=== PATIENT | female | born 1940 | race Caucasian/White ===

== ENCOUNTER 2022-02-02 14:18 | Inpatient (IN) | payer MEDICARE, SELFPAY ==
[2022-02-02] VITALS (23 sets, daily range): BP systolic 120–142; BP diastolic 72–88; PULSE 79–98; RESP 18–28; TEMP 36.2–36.7; O2SAT 87–98; BMI 19.6
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
--- NOTE | ~2022-02-02 | XR_ITS ---
XR chest 2V 02/06/2022 13:49 Indication: Hypoxia and shortness of breath. Procedure: 2 view chest Comparison: Comparison to multiple prior studies sequentially, with oldest reviewed study dated 06/04. Findings: There are unchanged interstitial infiltrates primarily involving the right mid and lower memo ng. Small right pleural effusion. Heart size normal. There is atherosclerosis. The lungs are hyperinf lated which is consistent with, but not diagnostic of chronic obstructive pulmonary disease. No acute osseous abnormality. No pneumothorax. Impression: 1: Coarse interstitial changes of the right mid and lower lung which may represents progressive pulmo nary fibrosis, although superimposed acute pneumonia not excluded. 2: Small right pleural effusion. Reviewed, dictated and finalized at location B. Impression: 1: Coarse interstitial changes of the right mid and lower lung which may repres ents progressive pulmonary fibrosis, although superimposed acute pneumonia not excluded. 2: Small right pleural effusion.
--- NOTE | ~2022-02-02 | XR_ITS ---
EXAMINATION: XR mandible min 4V DATE: 02/02/2022 23:48 INDICATION: Left jaw pain. Fall. TECHNIQUE: 4 views of the mandible were obtained. COMPARISON: Head CT 02/02/2022 FINDINGS: Bone alignment is normal. No fracture. IMPRESSION: 1. No fracture. Reviewed, dictated and finalized at location B. IMPRESSION: 1. No fracture.
--- NOTE | ~2022-02-02 | XR_ITS ---
MODIFIED ESOPHAGRAM HISTORY: Dysphagia. TECHNIQUE: Modified barium esophagram was performed on 02/09/2022. I administered fluoroscopy and perf ormed the exam with speech pathologist. Patient was seated for lateral fluoroscopic imaging for mairan stion of thin liquids, pudding, solids and quantified amounts, followed by thin liquids in uncontroll ed amounts. This was recorded on tape. A single fluoroscopic spot image was also recorded. The DAP fo r this procedure was 3.74 Gycm2. The amount of fluoroscopy time used during this procedure was 6.0 mi nutes. FINDINGS: Oral stage: Reduced labial seal/retention as well as reduced lingual movement. Pharyngeal stage: Pharyngeal dysphagia with reduced laryngeal elevation, reduced tongue base retracti on and reduced pharyngeal squeeze. There is laryngeal penetration with multiple consistencies. One ep isode of aspiration following the swallow with mildly thickened liquids which elicited a cough reflex . Cervical/esophageal stage: Adequate function. IMPRESSION: Oropharyngeal dysphagia with recurrent retropharyngeal penetration and one episode of asp iration. Please correlate with speech pathologist findings and specific feeding recommendations. Reviewed, dictated and finalized at location A. IMPRESSION: Oropharyngeal dysphagia with recurrent retropharyngeal penetration and one episode of aspiration. Please correlate with speech pathologist findin gs and specific feeding recommendations.
--- NOTE | ~2022-02-02 | CT_ITS ---
EXAMINATION: CT brain wo con DATE: 02/02/2022 23:49 INDICATION: Unwitnessed fall. TECHNIQUE: Computed tomography (CT) of the head was performed without intravenous contrast. The mA wa s adjusted according to patient size. Iterative reconstruction technique was employed. The dose-lengt h product was 681.00 mGy-cm. COMPARISON: Head CT 06/04/2018 FINDINGS: There are scattered areas of low attenuation in the cerebral white matter. There is no intr acranial hemorrhage, acute infarction, or abnormal intracranial mass lesion. There is a small old inf arct in left cerebellum. There is mild mucosal thickening in the paranasal sinuses. There are likely changes of ocular lens replacement surgeries. The mastoid air cells are normal. IMPRESSION: 1. Small old infarct in left cerebellum. 2. Stable mild nonspecific cerebral white matter disease, which likely represents chronic small vesse l ischemic disease. Reviewed, dictated and finalized at location B. IMPRESSION: 1. Small old infarct in left cerebellum. 2. Stable mild nonspecific cerebral white matter disease, which likely represen ts chronic small vessel ischemic disease.
--- NOTE | ~2022-02-02 | XR_ITS ---
EXAMINATION: XR chest 1V portable DATE: 02/09/2022 10:14 INDICATION: Choking with eating. Concern for aspiration. TECHNIQUE: frontal view of the chest was obtained. COMPARISON: Chest radiograph dated 02/06/2022 and 12/06/2017 FINDINGS: Opacities in the right mid and lower lung zone which could represent progression of chronic interstit ial lung disease with suggestion of bronchiectatic changes in the lower lung zone extending directly radiographs dated 12/06/2017 or more acute superimposed pneumonia, pulmonary edema or atelectasis. Cor responding mild interval progression in volume loss in the right lung. Minimal left basilar atelectas is. No pneumothorax or left-sided pleural effusion. Heart size is normal. Mild thoracic dextrocurvatu re. IMPRESSION: 1. Increasing opacities with bronchiectatic changes in the right mid and lower lung zone and with cor responding decreased lung volumes. This likely represents progression of unilateral chronic interstit ial lung disease which may be related to chronic or recurrent aspiration or pneumonia. 2. Small right pleural effusion. Reviewed, dictated and finalized at location A. IMPRESSION: 1. Increasing opacities with bronchiectatic changes in the right mid and lower lung zone and with corresponding decreased lung volumes. This likely represents progression of unilateral chronic interstitial lung disease which may be relat ed to chronic or recurrent aspiration or pneumonia. 2. Small right pleural effusion.
--- NOTE | ~2022-02-02 | XR_ITS ---
EXAMINATION: XR chest 1V portable DATE: 02/11/2022 13:04 INDICATION: Aspiration. TECHNIQUE: A single frontal view of the chest was obtained. COMPARISON: Chest single view 02/09/2022, 06/04/2018 FINDINGS: There is chronic volume loss of right hemithorax. There are coarse reticular opacities in a ll right lung zones and at left lung base. No pleural effusion or pneumothorax. The heart size is nor mal. IMPRESSION: 1. Stable coarse reticular opacities in all right lung zones and at left lung base with right-sided v olume loss, likely chronic lung disease. Reviewed, dictated and finalized at location A. IMPRESSION: 1. Stable coarse reticular opacities in all right lung zones and at left lung b ase with right-sided volume loss, likely chronic lung disease.
--- NOTE | ~2022-02-02 | XR_ITS ---
EXAMINATION: XR chest 1V Exam Date/Time: 02/02/2022 14:30 CDT CLINICAL HISTORY: Fall today, pain in left hip Comparison: 06/04/2018. RESULT: Lines, tubes, and devices: None. Lungs and pleura: Increased coarse interstitial and fine reticular opacities with increased volume l oss in the right lung. Minimal right costophrenic angle blunting. Cardiomediastinal silhouette: Stable cardiomediastinal silhouette. Other: No acute osseous or upper abdominal finding. IMPRESSION: Increased interstitial opacities in the right lung, may reflect progressive fibrosis. Infection is no t excluded. New small right pleural effusion versus pleural scarring. No acute traumatic finding in t he chest. Reviewed, dictated and finalized at location K. IMPRESSION: Increased interstitial opacities in the right lung, may reflect progressive fib rosis. Infection is not excluded. New small right pleural effusion versus pleur al scarring. No acute traumatic finding in the chest.
--- NOTE | ~2022-02-02 | XR_ITS ---
EXAM: XR hip LT min 3V w AP pelvis HISTORY: Fall today, pain in left hip COMPARISON: 06/04/2018. FINDINGS: Severe osteopenia. Degenerative lumbar changes. Partially visualized right femoral fixatio n hardware. Nondisplaced left intertrochanteric fracture. No other fracture identified. The rectum is dilated by formed stool. IMPRESSION: Nondisplaced left intertrochanteric fracture. Possible fecal impaction. Reviewed, dictated and finalized at location K.
--- NOTE | 2022-02-02 14:22 | ECG_ITS ---
Measurements Intervals [place] Rate: 91 P: 61 WA: 183 QRS: 47 QRSD: 55 T: 47 QT: 374 QTc: 462 Interpretive Statements SINUS RHYTHM EARLY PRECORDIAL R/S TRANSITION BORDERLINE ST-T WAVE ABNORMALITY- INFERIOR LEADS BASELINE ARTIFACT- I, III, AVL, V2, V4-V5 BORDERLINE ECG Electronically Signed On 02-02-2022 20:09:14 CDT by Christiano Evangelista D.O.
[2022-02-02 15:12] LABS: Basophils Percent Auto 0.2 % (0.2-1.2); Eosinophils Percent Auto 0.1 % (0-4.4); Hematocrit 37.5 % (37.0-47.0); Hemoglobin 12.2 g/dL (12.0-15.0); Immature Granulocyte Absolute 0.13 K/mm3 (0.00-0.031); Immature Granulocyte Percent A 0.7 % (0-0.5); Lymphocytes Absolute Auto 0.97 K/mm3 (0.9-3.2); Lymphocytes Percent Auto 4.9 % (18.3-44.2); Mean Corpuscular HGB Conc 32.5 g/dl (32-36); Mean Corpuscular Volume 101.4 fl (80-100); Mean Platelet Volume 9.5 fl (7.4-10.4); Monocytes Absolute Auto 0.4 K/mm3 (0.1-0.6); Monocytes Percent Auto 2.1 % (2.6-8.5); Neutrophils Absolute Auto 18.3 K/mm3 (1.3-6.7); Platelet Count Result 233 k/mm3 (150-375); Red Cell Distribution Width 12.5 % (11.5-14.5); White Blood Count 19.9 K/mm3 (4.5-10.0)
[2022-02-02 15:22] LABS: INR 1.1; Partial Thromboplastin Time 28.6 SECONDS (22.3-36.8); Prothrombin Time 13.8 Seconds (11.1-14.7)
[2022-02-02 15:23] LABS: Alanine Aminotransferase 16 U/L (6-35); Albumin Level 3.8 g/dL (3.5-5.1); Alkaline Phosphatase 115 U/L (38-126); Anion Gap 7 mmol/L (8-16); Aspartate Amino Transferase 26 U/L (14-36); Bilirubin,Total 0.4 mg/dL (0.2-1.3); Blood Urea Nitrogen 16 mg/dL (7-17); Calcium 8.8 mg/dL (8.4-10.2); Carbon Dioxide 25 mmol/L (22-30); Chloride 106 mmol/L (98-107); Estimated CRCL calculation 46 ml/min; Estimated Glomerular Filt Rate > 60; Glucose 143 mg/dL (65-110); Sodium 138 mmol/L (137-145)
[2022-02-02] MEDS: MORPHINE SULFATE (*CRX) 4 MG/ML INJ IV PUSH (15:36)
[2022-02-02 15:55] LABS: SARS-CoV-2 RNA PCR Negative
--- NOTE | 2022-02-02 16:03 | ED.LOWEXIN ---
HPI - Extremity Injury (Lower) General Chief Complaint: Extremity Injury, Lower Stated Complaint: hip injury Time Seen by Provider: 02/02/22 14:21 History of Present Illness HPI Narrative: Patient is an 81-year-old female with history of dementia who presents ER with left hip fracture. Patient was found this morning on the ground during morning rounds. Imaging showed hip fracture so she was sent to the ER for further evaluation. Patient endorses pain at her left hip. She is unable to verbalize what occurred to the caused her to injure her hip. Denies numbness or tingling. Related Data Allergies Allergy/AdvReac Type Severity Reaction Status Date / Time No Known Allergies Allergy Unverified 12/06/17 07:41 Review of Systems Review of Systems: ROS unobtainable: Yes unobtainable due to mental status PMFSH Past Medical History Medical History (Updated 02/02/22 @ 18:10 by Dwaine Noonan MD) Dysthymic disorder Mixed hyperlipidemia Surgical History Surgical History (Updated 02/02/22 @ 16:05 by Dwaine Noonan MD) History of hip surgery Right hip Social History Social History Smoking status: Former smoker Smoking end date: 09/21/05 Exam Narrative: GENERAL: Well-appearing, well-nourished, and in no acute distress. HEAD: Normocephalic, atraumatic. ENT: Mucous membranes moist. CHEST: Clear to auscultation. No respiratory distress. HEART: Regular rate and rhythm. Normal peripheral pulses. ABDOMEN: Soft, nontender, nondistended. EXTREMITIES: Left lower extremity in position of comfort which is flexed at the hip and knee. Tender palpation over the left hip. Sensation and pulses intact in the affected extremity. SKIN: Warm, dry, no rash. NEURO: Alert and oriented x1. PSYCH: Normal mood and affect. Course Course Emergency Course: Orthopedic surgery consulted. Admit to hospitalist service. Vital Signs Vital signs: Vital Signs Temperature 98.1 F 02/02/22 14:17 Pulse Rate 98 02/02/22 14:17 Respiratory Rate 24 H 02/02/22 14:17 Blood Pressure 126/81 02/02/22 14:17 Pulse Oximetry 87 L 02/02/22 14:17 Temperature 98.1 F 02/02/22 14:17 Pulse Rate 89 02/02/22 16:30 Respiratory Rate 20 02/02/22 16:30 Blood Pressure 129/86 02/02/22 15:45 Pulse Oximetry 98 02/02/22 16:30 MDM - Extremity Injury (Lower) Lab Data Result diagrams: 02/02/22 15:06 02/02/22 15:05 Labs: Lab Results 02/02/22 02/02/22 02/02/22 Range/Units 15:05 15:05 15:06 WBC (4.5-10.0) K/mm3 RBC (4.2-5.4) M/mm3 Hgb (12.0-15.0) g/dL Hct (37.0-47.0) % MCV (80-100) fl MCH (26-34) pg MCHC (32-36) g/dl RDW (11.5-14.5) % Plt Count (150-375) k/mm3 MPV (7.4-10.4) fl Immature Gran % (Auto) (0-0.5) % Neut % (Auto) (45.5-73.1) % Lymph % (Auto) (18.3-44.2) % [place] % (Auto) (2.6-8.5) % Eos % (Auto) (0-4.4) % Baso % (Auto) (0.2-1.2) % Lymph # (Auto) (0.9-3.2) K/mm3 [place] # (Auto) (0.1-0.6) K/mm3 Eos # (Auto) (0-0.3) K/mm3 Baso # (Auto) (0.0-0.1) K/mm3 Abs Immat Gran (auto) (0.00-0.031) K/mm3 Absolute Neuts (auto) (1.3-6.7) K/mm3 Absolute Nucleated RBC (0.0-0.012) K/mm3 Nucleated RBC % (0.0-0.2) % PT 13.8 (11.1-14.7) Seconds INR 1.1 APTT 28.6 (22.3-36.8) SECONDS Sodium 138 (137-145) mmol/L Potassium 4.0 (3.4-5.0) mmol/L Chloride 106 (98-107) mmol/L Carbon Dioxide 25 (22-30) mmol/L Anion Gap 7 L (8-16) mmol/L BUN 16 (7-17) mg/dL Creatinine 0.70 (0.7-1.0) mg/dL Estim Creat Clear Calc 46 ml/min Estimated GFR > 60 (59 - ) Glucose 143 H (65-110) mg/dL Calcium 8.8 (8.4-10.2) mg/dL Total Bilirubin 0.4 (0.2-1.3) mg/dL AST 26 (14-36) U/L ALT 16 (6-35) U/L Alkaline Phosphatase 115 (38-126) U/L Total Protein 8.0 (6.3-8.2) g/dL Albumin 3.8 (3.5-5.1) g/dL SARS-CoV-2 RNA (RT-
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
--- NOTE | 2022-02-02 20:04 | ADMGEN ---
This patient, Awilda Salazar, was admitted to 2 Medical Room 246-01. Patient/family oriented to hospital policies and general routines including ID bracelet, bed and alarms, visiting hours, pain management, procedures, bathroom and other care routines, personal items, smoking policy, room service/diet, and visiting hours. Information on how to activate the Rapid Response Team has been discussed. Patient/Family are encouraged to report perceived risks to care and to ask questions if they do not understand what they are told or what they should do.
[2022-02-02] MEDS: busPIRone HCL 5 MG TABLET PO (23:56)
[2022-02-02] MEDS: busPIRone HCL 2.5 MG TABLET PO (23:57)
[2022-02-02] MEDS: MELATONIN 5 MG TABLET PO (23:58)
[2022-02-03] VITALS (9 sets, daily range): BP systolic 118–139; BP diastolic 63–77; PULSE 79–90; RESP 16–20; TEMP 36.1–36.7; O2SAT 92–98
[2022-02-03 01:59] LABS: Add Urine Microscopic? YES; Appearance Urine Cloudy (Clear); Bilirubin Urine 1+ (Negative); Blood Urine 2+ (Negative); Color Urine Yellow (Yellow); Glucose Urine UA Negative (Negative); Ketones Urine 2+ mg/dL (Negative); Leukocyte Esterase Ur 1+ LEU/UL (Negative); Nitrate Urine Negative (Negative); Protein Urine 2+ mg/dL (Negative); Specific Grav Ur >= 1.030 (1.001-1.035); Urobilinogen Urine 0.2 mg/dL (<2.0)
[2022-02-03 02:05] LABS: Bacteria Urine 4+ /hpf; Mucus Urine Heavy /lpf; RBC Urine 21-50 /hpf (0-2); WBC Clumps Urine Present /HPF; WBC Urine >75 /hpf
[2022-02-03 05:39] LABS: Basophils Percent Auto 0.2 % (0.2-1.2); Eosinophils Absolute Auto 0.1 K/mm3 (0-0.3); Eosinophils Percent Auto 0.5 % (0-4.4); Hemoglobin 11.7 g/dL (12.0-15.0); Immature Granulocyte Percent A 0.8 % (0-0.5); Lymphocytes Absolute Auto 1.31 K/mm3 (0.9-3.2); Lymphocytes Percent Auto 9.9 % (18.3-44.2); Mean Corpuscular HGB Conc 31.6 g/dl (32-36); Mean Corpuscular Hemoglobin 32.2 pg (26-34); Mean Corpuscular Volume 101.9 fl (80-100); Mean Platelet Volume 9.7 fl (7.4-10.4); Monocytes Absolute Auto 0.9 K/mm3 (0.1-0.6); Monocytes Percent Auto 6.6 % (2.6-8.5); Neutrophils Absolute Auto 10.9 K/mm3 (1.3-6.7); Platelet Count Result 195 k/mm3 (150-375); Red Blood Count 3.63 M/mm3 (4.2-5.4); Red Cell Distribution Width 12.3 % (11.5-14.5); White Blood Count 13.3 K/mm3 (4.5-10.0)
[2022-02-03 05:59] LABS: Anion Gap 3 mmol/L (8-16); Blood Urea Nitrogen 17 mg/dL (7-17); CRP 6.1 mg/dL (<1.0); Calcium 8.3 mg/dL (8.4-10.2); Carbon Dioxide 31 mmol/L (22-30); Chloride 103 mmol/L (98-107); Estimated CRCL calculation 42 ml/min; Estimated Glomerular Filt Rate > 60; Glucose 105 mg/dL (65-110); Magnesium 1.8 mg/dL (1.6-2.3); Potassium 3.8 mmol/L (3.4-5.0); Sodium 137 mmol/L (137-145)
[2022-02-03] MEDS: LEVOTHYROXINE SODIUM 50 MCG TABLET PO (06:06)
[2022-02-03 06:31] LABS: Procalcitonin 0.1 ng/mL
[2022-02-03] MEDS: DONEPEZIL HCL 10 MG TABLET PO (08:04)
[2022-02-03] MEDS: busPIRone HCL 5 MG TABLET PO ×2 (08:04→21:03)
[2022-02-03] MEDS: MIRTAZAPINE 7.5 MG TABLET PO (08:04)
[2022-02-03] MEDS: DOCUSATE SODIUM 100 MG CAPSULE PO ×2 (08:04→16:37)
[2022-02-03] MEDS: POTASSIUM CHLORIDE 20 MEQ TABLET.ER PO (08:04)
[2022-02-03] MEDS: SENNOSIDES 8.6 MG TABLET 17.2 MG PO (08:05)
[2022-02-03] MEDS: PANTOPRAZOLE 40 MG TABLET PO (08:05)
[2022-02-03] MEDS: SERTRALINE HCL 50 MG TABLET PO (08:05)
[2022-02-03] MEDS: busPIRone HCL 2.5 MG TABLET PO ×2 (08:05→21:03)
--- NOTE | 2022-02-03 09:16 | PM.CNOR ---
Assessment and Plan Assessment and plan (1) Closed intertrochanteric fracture of left hip: Qualifiers: Encounter type: initial encounter Fracture alignment: displaced Qualified Code(s): S72.142A - Displaced intertrochanteric fracture of left femur, initial encounter for closed fracture Code(s): S72.142A - Displaced intertrochanteric fracture of left femur, initial encounter for closed fracture Status: Acute Assessment and Plan: Displaced intertrochanteric fracture. Significant dementia. Leukocytosis and u/a changes. Will start antibiotics per hospitalist. I spoke with the patient's daughter. I reviewed the proposed procedure. Risks, benefits, and alternatives discussed. Proceed with ORIF left hip with IM nail. History of Present Illness HPI Consult date: 02/03/22 Chief complaint: Hip Fracture Narrative: Pleasant 81-year-old [facility] with [facility] She does not know exactly what happened. Complains of left hip and jaw pain. History of hypertension, dyslipidemia, depression, dementia, hysterectomy, right hip intertrochanteric nail fixation. She developed hypoxia with IV morphine. Chest x-ray shows interstitial opacities although these may be chronic. She has a 19.9 leukocytosis. Review of Systems Review of Systems: ROS unobtainable: Yes unobtainable due to mental status PMFSH Past Medical History Medical History Dementia Depression Hypertension No longer on medication. Hypothyroidism Mitral valve prolapse Mixed hyperlipidemia No longer on medication. Surgical History Surgical History History of bladder suspension procedure History of cataract extraction History of hip surgery Right hip History of hysterectomy History of open reduction and internal fixation (ORIF) procedure Right hip fracture. Family History Family History Mother Breast cancer Father Diabetes mellitus Heart disease Sibling Amyotrophic lateral sclerosis Social History Social History Social History: Healthcare power of road production general manager: Laura Leigh, daughter. Code status: Do not resuscitate. Smoking status: Former smoker Alcohol intake: never Substance use: never Substance use type: does not use Additional living arrangements comments: Memory care unit at [place]. Spiritual care concerns: No Meds Home Medications and Allergies Home Medications Medication Instructions Recorded Confirmed Type Multivitamin Women 50 Plus 1 tab-cap PO DAILY 02/02/22 02/02/22 History acetaminophen 650 mg PO DAILY 02/02/22 02/02/22 History buspirone 7.5 mg PO Q12H 02/02/22 02/02/22 History docusate sodium [DOK] 100 mg PO BID 02/02/22 02/02/22 History donepezil 10 mg PO DAILY 02/02/22 02/02/22 History ergocalciferol (vitamin D2) 50,000 unit PO WEEKLY 02/02/22 02/02/22 History [Vitamin D2] levothyroxine 50 mcg PO DAILY 02/02/22 02/02/22 History melatonin 5 mg PO HS 02/02/22 02/02/22 History memantine 28 mg PO DAILY 02/02/22 02/02/22 History mirtazapine 7.5 mg PO DAILY 02/02/22 02/02/22 History omeprazole 20 mg PO DAILY 02/02/22 02/02/22 History potassium chloride 20 meq PO DAILY 02/02/22 02/02/22 History sennosides [senna] 17.2 mg PO DAILY 02/02/22 02/02/22 History sertraline 50 mg PO DAILY 02/02/22 02/02/22 History Allergies Allergy/AdvReac Type Severity Reaction Status Date / Time No Known Allergies Allergy Unverified 12/06/17 07:41 Vital Signs Vital Signs - 24 hr 02/02/22 14:17 02/02/22 14:55 02/02/22 15:00 Temperature 36.7 C Pulse Rate 98 79 89 Respiratory Rate 24 H 23 H 28 H Blood Pressure 126/81 Pulse Oximetry 87 L 02/02/22 15:15 02/02/22 15:30 02/02/22 15:45 Temperature Pulse Rate 89 91 91 Respirator
--- NOTE | 2022-02-03 16:26 | P.PNIM_ITS ---
Progress Note: A&P Assessment and Plan (1) Unwitnessed fall: Code(s): R29.6 - Repeated falls Status: Acute Assessment and Plan: Patient was found on the ground at her nursing facility. Fall was unwitnessed. 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 Mandible x-ray showed no fracture. Patient denies jaw pain today * Implement fall precautions (2) Closed intertrochanteric fracture of left hip: Qualifiers: Encounter type: initial encounter Fracture alignment: displaced Qualified Code(s): S72.142A - Displaced intertrochanteric fracture of left femur, initial encounter for closed fracture Code(s): S72.142A - Displaced intertrochanteric fracture of left femur, initial encounter for closed fracture Status: Acute Assessment and Plan: Nondisplaced left IT fracture noted on imaging. * Appreciate orthopedic surgery consultation * Planning for ORIF tomorrow with Dr. Bustos * Weight-bearing status per Orthopedic surgery * Will need PT/OT postoperatively * Continue Flynn catheter until mobility is improved * Supportive care. Limit narcotics given hypoxia with morphine (3) UTI (urinary tract infection): Code(s): N39.0 - Urinary tract infection, site not specified Status: Acute Assessment and Plan: Urinalysis grossly abnormal and patient with leukocytosis. Unable to indicate urinary symptoms * Continue IV Rocephin * Urine culture pending. Await results and tailor antibiotics accordingly * WBC improving. Patient remains afebrile (4) Abnormal chest x-ray: Code(s): R93.89 - Abnormal findings on diagnostic imaging of other specified body structures Status: Acute Assessment and Plan: Increased interstitial opacities in the right lung may reflect progressive fibrosis though infection is not excluded. * Patient reports no history and has no symptoms to suggest underlying infection * She is requiring supplemental O2 due to episode of hypoxia following morphine * Currently maintaining adequate oxygen saturations and O2 should be weaned * No evidence to suggest pneumonia. Azithromycin discontinued (5) Hypothyroidism: Code(s): E03.9 - Hypothyroidism, unspecified Status: Acute Assessment and Plan: TSH is within normal limits * Continue levothyroxine (6) Dementia: Code(s): F03.90 - Unspecified dementia without behavioral disturbance Status: Acute Assessment and Plan: At baseline * Continue donepezil and memantine. Subjective Date/time seen: 02/03/22 16:26 Interval history: Date of service: 02/03/2022 Awilda Salazar is an 81-year-old female with a history of dementia, hypertension, hypothyroidism, hyperlipidemia who is seen in follow-up for left hip fracture after an unwitnessed fall. She cannot recall specifics of this fall. At this time she is complaining of mid back pain. She denies jaw pain. She denies hip pain. She cannot recall what she ate for breakfast. She denies shortness of breath. Denies belly pain. Review of Systems Review of Systems: Review of systems is limited due to dementia. Pertinent positives and negatives as per HPI Exam Narrative: General: Thin, frail 81-year-old female, supine in bed, comfortable, NARD Neuro: awake, alert and oriented to self, knows she is at the h
--- NOTE | 2022-02-03 16:26 | PM.IMPN ---
Progress Note: A&P Assessment and Plan (1) Unwitnessed fall: Code(s): R29.6 - Repeated falls Status: Acute Assessment and Plan: Patient was found on the ground at her nursing facility. Fall was unwitnessed. 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 Mandible x-ray showed no fracture. Patient denies jaw pain today Implement fall precautions (2) Closed intertrochanteric fracture of left hip: Qualifiers: Encounter type: initial encounter Fracture alignment: displaced Qualified Code(s): S72.142A - Displaced intertrochanteric fracture of left femur, initial encounter for closed fracture Code(s): S72.142A - Displaced intertrochanteric fracture of left femur, initial encounter for closed fracture Status: Acute Assessment and Plan: Nondisplaced left IT fracture noted on imaging. Appreciate orthopedic surgery consultation Planning for ORIF tomorrow with Dr. Bustos Weight-bearing status per Orthopedic surgery Will need PT/OT postoperatively Continue Flynn catheter until mobility is improved Supportive care. Limit narcotics given hypoxia with morphine (3) UTI (urinary tract infection): Code(s): N39.0 - Urinary tract infection, site not specified Status: Acute Assessment and Plan: Urinalysis grossly abnormal and patient with leukocytosis. Unable to indicate urinary symptoms Continue IV Rocephin Urine culture pending. Await results and tailor antibiotics accordingly WBC improving. Patient remains afebrile (4) Abnormal chest x-ray: Code(s): R93.89 - Abnormal findings on diagnostic imaging of other specified body structures Status: Acute Assessment and Plan: Increased interstitial opacities in the right lung may reflect progressive fibrosis though infection is not excluded. Patient reports no history and has no symptoms to suggest underlying infection She is requiring supplemental O2 due to episode of hypoxia following morphine Currently maintaining adequate oxygen saturations and O2 should be weaned No evidence to suggest pneumonia. Azithromycin discontinued (5) Hypothyroidism: Code(s): E03.9 - Hypothyroidism, unspecified Status: Acute Assessment and Plan: TSH is within normal limits Continue levothyroxine (6) Dementia: Code(s): F03.90 - Unspecified dementia without behavioral disturbance Status: Acute Assessment and Plan: At baseline Continue donepezil and memantine. Subjective Date/time seen: 02/03/22 16:26 Interval history: Date of service: 02/03/2022 Awilda Salazar is an 81-year-old female with a history of dementia, hypertension, hypothyroidism, hyperlipidemia who is seen in follow-up for left hip fracture after an unwitnessed fall. She cannot recall specifics of this fall. At this time she is complaining of mid back pain. She denies jaw pain. She denies hip pain. She cannot recall what she ate for breakfast. She denies shortness of breath. Denies belly pain. Review of Systems Review of Systems: Review of systems is limited due to dementia. Pertinent positives and negatives as per HPI Exam Narrative: General: Thin, frail 81-year-old female, supine in bed, comfortable, NARD Neuro: awake, alert and oriented to self, knows she is at the hospital but cannot state the name of the hospital, states the president is [facility], believes it is wintertime, cannot state the year, able to identify simple objects, able to follow commands, speech clear, no focal neuro deficits noted HEENMT: normocephalic, atraumatic, EOMI, sclerae anicteric Respiratory: clear to auscultation bilaterally, nonlabored breathing Cardio: regular rate, regular rhythm with S1-S2 Abdomen: nondistended, normoactive carla
[2022-02-03] MEDS: MELATONIN 5 MG TABLET PO (21:03)
[2022-02-04] VITALS (19 sets, daily range): BP systolic 103–155; BP diastolic 59–91; PULSE 80–100; RESP 14–24; TEMP 36–36.6; O2SAT 90–100
[2022-02-04 05:26] LABS: Hematocrit 37.2 % (37.0-47.0); Hemoglobin 11.8 g/dL (12.0-15.0); Mean Corpuscular HGB Conc 31.7 g/dl (32-36); Mean Corpuscular Hemoglobin 32.9 pg (26-34); Mean Corpuscular Volume 103.6 fl (80-100); Mean Platelet Volume 10.5 fl (7.4-10.4); Platelet Count Result 188 k/mm3 (150-375); Red Blood Count 3.59 M/mm3 (4.2-5.4); Red Cell Distribution Width 12.6 % (11.5-14.5); White Blood Count 15.5 K/mm3 (4.5-10.0)
[2022-02-04 05:34] LABS: Anion Gap 6 mmol/L (8-16); Blood Urea Nitrogen 16 mg/dL (7-17); Calcium 8.2 mg/dL (8.4-10.2); Carbon Dioxide 25 mmol/L (22-30); Chloride 105 mmol/L (98-107); Estimated CRCL calculation 51 ml/min; Estimated Glomerular Filt Rate > 60; Glucose 114 mg/dL (65-110); Sodium 136 mmol/L (137-145)
[2022-02-04] MEDS: LEVOTHYROXINE SODIUM 50 MCG TABLET PO (06:23)
--- NOTE | 2022-02-04 07:16 | WPDHPUPDATE1 ---
History and Physical Update Update Date/Time: 02/04/22 07:16 History and Physical has been reviewed, including an updated exam of the patient. There are NO changes in the patient's condition. Risks, benefits, and alternatives have been discussed and questions answered. Patient agrees to proceed with procedure.
[2022-02-04] MEDS: MIRTAZAPINE 7.5 MG TABLET PO (08:09)
[2022-02-04] MEDS: DONEPEZIL HCL 10 MG TABLET PO (08:09)
[2022-02-04] MEDS: busPIRone HCL 2.5 MG TABLET PO ×2 (08:10→20:26)
[2022-02-04] MEDS: SERTRALINE HCL 50 MG TABLET PO (08:10)
[2022-02-04] MEDS: PANTOPRAZOLE 40 MG TABLET PO (08:10)
[2022-02-04] MEDS: busPIRone HCL 5 MG TABLET PO ×2 (08:10→20:26)
--- NOTE | 2022-02-04 11:25 | PM.IMPN ---
Progress Note: A&P Assessment and Plan (1) Unwitnessed fall: Code(s): R29.6 - Repeated falls Status: Acute Assessment and Plan: Patient was found on the ground at her nursing facility. Fall was unwitnessed. 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 Mandible x-ray showed no fracture. No further complaints of jaw pain. Fall precautions (2) Closed intertrochanteric fracture of left hip: Qualifiers: Encounter type: initial encounter Fracture alignment: displaced Qualified Code(s): S72.142A - Displaced intertrochanteric fracture of left femur, initial encounter for closed fracture Code(s): S72.142A - Displaced intertrochanteric fracture of left femur, initial encounter for closed fracture Status: Acute Assessment and Plan: Nondisplaced left IT fracture noted on imaging. Appreciate orthopedic surgery consultation Planning for ORIF today with Dr. Bustos Weight-bearing status per Orthopedic surgery Will need PT/OT postoperatively Continue Flynn catheter until mobility is improved Supportive care. Limit narcotics given hypoxia with morphine (3) UTI (urinary tract infection): Code(s): N39.0 - Urinary tract infection, site not specified Status: Acute Assessment and Plan: Urinalysis grossly abnormal and patient with leukocytosis. Unable to indicate urinary symptoms Continue IV Rocephin Urine culture with growth of mixed daljit. Due to clinical picture and pt inability to report symptoms, will continue with treatment (4) Abnormal chest x-ray: Code(s): R93.89 - Abnormal findings on diagnostic imaging of other specified body structures Status: Acute Assessment and Plan: Increased interstitial opacities in the right lung may reflect progressive fibrosis though infection is not excluded. Patient reports no history and has no symptoms to suggest underlying infection She is requiring supplemental O2 due to episode of hypoxia following morphine Currently maintaining adequate oxygen saturations 97% and above therefore O2 should be weaned (5) Hypothyroidism: Code(s): E03.9 - Hypothyroidism, unspecified Status: Acute Assessment and Plan: TSH is within normal limits Continue levothyroxine (6) Dementia: Code(s): F03.90 - Unspecified dementia without behavioral disturbance Status: Acute Assessment and Plan: At baseline Continue donepezil and memantine. Subjective Date/time seen: 02/04/22 11:25 Interval history: Date of service: 02/03/2022 Awilda Salazar is an 81-year-old female with a history of dementia, hypertension, hypothyroidism, hyperlipidemia who is seen in follow-up for left hip fracture after an unwitnessed fall. She complains of feeling tired today. She denies any pain in. Denies back pain. She does complain of feeling thirsty and wants to know when she can have something to eat and drink. Discussed that she is having surgery today for her hip. She asked how she broke her hip and then questioned how she fell. I told her that no one saw her fall so we do not know and she said ?I was probably dancing. She denies shortness of breath, chest pain, nausea, or vomiting. No further history obtainable Review of Systems Review of Systems: All systems reviewed & are unremarkable except as noted in HPI and below Exam Narrative: General: Thin, frail 81-year-old female, supine in bed, comfortable, NARD Neuro: awake, alert and oriented to self, knows she is at the hospital but cannot state the name of the hospital, cannot state the month or year, able to follow commands, speech clear, no focal neuro deficits noted HEENMT: normocephalic, atraumatic, EOMI, sclerae anicteric Respiratory: clear to auscul
[2022-02-04] MEDS: MORPHINE SULFATE (*CRX) 2 MG/ML INJ 1 MG IV PUSH (13:12)
--- NOTE | 2022-02-04 13:30 | PC.NURSE ---
Verbal report given to Perry BREAUX Preop.To OR via bed. Daughters at bedside. Flynn draining vinicius urine.
[2022-02-04] MEDS: LACTATED RINGERS 1,000 ML 30 ML IV CONT ×2 (13:40→16:30)
--- NOTE | 2022-02-04 13:47 | WPDANESEPPF ---
Anes - Initial Pre Proc Eval Procedure: Operation Date: 02/04/22 15:30 Proposed Procedures p Left Intertrochanteric Nail(Left) - Taurus Bustos MD Date/Time: 02/04/22 13:47 Surgeon: Letitia Rocha PA-C Pre Op Diagnosis: Hip Fracture Patient Data Age: 81 Gender: F Height: 1.6 m Weight: 63.8 kg Last Vital Signs Temp 36.4 C L 02/04/22 09:45 Pulse 91 02/04/22 09:45 Resp 22 H 02/04/22 09:45 BP 138/69 02/04/22 09:45 Pulse Ox 98 02/04/22 09:45 Allergies Allergy/AdvReac Type Severity Reaction Status Date / Time No Known Allergies Allergy Unverified 12/06/17 07:41 Home Medications Medication Instructions Recorded Confirmed Type Multivitamin Women 50 Plus 1 tab-cap PO DAILY 02/02/22 02/02/22 History acetaminophen 650 mg PO DAILY 02/02/22 02/02/22 History buspirone 7.5 mg PO Q12H 02/02/22 02/02/22 History docusate sodium [DOK] 100 mg PO BID 02/02/22 02/02/22 History donepezil 10 mg PO DAILY 02/02/22 02/02/22 History ergocalciferol (vitamin D2) 50,000 unit PO WEEKLY 02/02/22 02/02/22 History [Vitamin D2] levothyroxine 50 mcg PO DAILY 02/02/22 02/02/22 History melatonin 5 mg PO HS 02/02/22 02/02/22 History memantine 28 mg PO DAILY 02/02/22 02/02/22 History mirtazapine 7.5 mg PO DAILY 02/02/22 02/02/22 History omeprazole 20 mg PO DAILY 02/02/22 02/02/22 History potassium chloride 20 meq PO DAILY 02/02/22 02/02/22 History sennosides [senna] 17.2 mg PO DAILY 02/02/22 02/02/22 History sertraline 50 mg PO DAILY 02/02/22 02/02/22 History Laboratory Tests 02/04/22 02/04/22 04:48 04:48 WBC 15.5 K/mm3 H K/mm3 (4.5-10.0) RBC 3.59 M/mm3 L M/mm3 (4.2-5.4) Hgb 11.8 g/dL L g/dL (12.0-15.0) Hct 37.2 % % (37.0-47.0) MCV 103.6 fl H fl (80-100) MCH 32.9 pg pg (26-34) MCHC 31.7 g/dl L g/dl (32-36) RDW 12.6 % % (11.5-14.5) Plt Count 188 k/mm3 k/mm3 (150-375) MPV 10.5 fl H fl (7.4-10.4) Sodium 136 mmol/L L mmol/L (137-145) Potassium 4.0 mmol/L mmol/L (3.4-5.0) Chloride 105 mmol/L mmol/L (98-107) Carbon Dioxide 25 mmol/L mmol/L (22-30) Anion Gap 6 mmol/L L mmol/L (8-16) BUN 16 mg/dL mg/dL (7-17) Creatinine 0.60 mg/dL L mg/dL (0.7-1.0) Estim Creat Clear Calc 51 ml/min ml/min Estimated GFR > 60 (59 - ) Glucose 114 mg/dL H mg/dL (65-110) Calcium 8.2 mg/dL L mg/dL (8.4-10.2) Patient hx anesthesia problems: none Family hx anesthesia problems: none Results Review: All pre-operative results and documents have been reviewed as part of the pre-operative evaluation. [facility] Past Medical History Medical History Dementia Depression Hypertension No longer on medication. Hypothyroidism Mitral valve prolapse Mixed hyperlipidemia No longer on medication. Surgical History Surgical History History of bladder suspension procedure History of cataract extraction History of hip surgery Right hip History of hysterectomy History of open reduction and internal fixation (ORIF) procedure Right hip fracture. Family History Family History Mother Breast cancer Father Diabetes mellitus Heart disease Sibling Amyotrophic lateral sclerosis Social History Social History Social History: Healthcare power of insurance attorney: Laura Leigh, daughter. Code status: Do not resuscitate. Smoking status: Former smoker Alcohol intake: never Substance use: never Substance use type: does not use Additional living arrangements comments: Memory care unit at [place]. Spiritual care concerns: No Anes - Eval Final PreProcedure Day of Procedure 02/04/22 13:47 Patient weight: normal H
[2022-02-04] MEDS: TRANEXAMIC ACID 1,000MG/ISO100 1,000 MG/100 ML BAG 200 MG IVPB (13:50)
--- NOTE | 2022-02-04 14:58 | W.PM.PROC2 ---
Procedure Note - Detailed Date of Procedure 02/04/22 Pre-op Diagnosis Intertrochanteric fracture left hip. Post-op Diagnosis Same Procedure Performed ORIF left hip intertrochanteric fracture with short cephalomedullary nail. Surgeon Taurus Bustos MD Anesthesia General Findings The bone quality was extremely poor. This is consistent with her nonambulatory status. The fracture was significantly apex anterior with the secondary split through the posterior proximal greater trochanter. Reduction was performed as able. Description of Procedure The patient was given a general anesthetic, then carefully placed in fracture table. Sterile prep and drape performed in the usual fashion. Sterile curtain was used. Gentle traction was utilized to reduce the fracture. Fluoroscopy was used to confirm anatomic reduction and a proper placement of the implants. A longitudinal incision was created at the tip of the trochanter. The deep fascia was incised. The cannulated awl was used to open the proximal femur. The guidewire was placed across the fracture. The reamer was used to open the canal. The gamma nail was placed across the fracture site. A separate incision was made for placement of the cannulated guide sleeve. The guide pin was placed in the center of the femoral head. Appropriate measurement was taken. The pin was over reamed. The screw was placed with excellent purchase. The set screw was placed proximally and backed out a quater turn. The distal locking screw was placed through the jig. The jig was removed. The wound was irrigated. The deep fascia was closed with #1 Vicryl suture followed by 2-0 Vicryl suture and arleth. Sterile dressing was applied. The patient was transferred to the recovery room in stable condition. There were no complications. Implants The short gamma nail,130 degree was used. Lag screw length was 85 millimeters. Distal lock 35 mm. Estimated Blood Loss 200 Drains No Pathology None sent Complications No immediate complications Condition Stable Disposition PACU [facility] Billing Surgery - Charge Forward: Surgery Billing
--- NOTE | 2022-02-04 17:03 | SUR.PHASEI ---
Simple mask removed at 1700.
[2022-02-04] MEDS: MELATONIN 5 MG TABLET PO (22:09)
[2022-02-05] VITALS (9 sets, daily range): BP systolic 102–137; BP diastolic 55–66; PULSE 92–102; RESP 12–16; TEMP 35.9–36.7; O2SAT 90–100
[2022-02-05 05:49] LABS: Basophils Absolute Auto 0.1 K/mm3 (0.0-0.1); Basophils Percent Auto 0.3 % (0.2-1.2); Eosinophils Absolute Auto 0.1 K/mm3 (0-0.3); Eosinophils Percent Auto 0.4 % (0-4.4); Hematocrit 34.4 % (37.0-47.0); Hemoglobin 10.7 g/dL (12.0-15.0); Immature Granulocyte Absolute 0.16 K/mm3 (0.00-0.031); Immature Granulocyte Percent A 0.7 % (0-0.5); Lymphocytes Absolute Auto 1.32 K/mm3 (0.9-3.2); Lymphocytes Percent Auto 5.9 % (18.3-44.2); Mean Corpuscular HGB Conc 31.1 g/dl (32-36); Mean Corpuscular Hemoglobin 32.7 pg (26-34); Mean Corpuscular Volume 105.2 fl (80-100); Mean Platelet Volume 10.4 fl (7.4-10.4); Monocytes Absolute Auto 1.1 K/mm3 (0.1-0.6); Monocytes Percent Auto 4.7 % (2.6-8.5); Neutrophils Absolute Auto 19.8 K/mm3 (1.3-6.7); Platelet Count Result 200 k/mm3 (150-375); Red Blood Count 3.27 M/mm3 (4.2-5.4); Red Cell Distribution Width 12.7 % (11.5-14.5); White Blood Count 22.5 K/mm3 (4.5-10.0)
[2022-02-05] MEDS: LEVOTHYROXINE SODIUM 50 MCG TABLET PO (05:51)
[2022-02-05 06:03] LABS: Anion Gap 9 mmol/L (8-16); Blood Urea Nitrogen 13 mg/dL (7-17); Carbon Dioxide 27 mmol/L (22-30); Chloride 103 mmol/L (98-107); Estimated CRCL calculation 44 ml/min; Estimated Glomerular Filt Rate > 60; Glucose 113 mg/dL (65-110); Potassium 3.7 mmol/L (3.4-5.0); Sodium 139 mmol/L (137-145)
[2022-02-05] MEDS: ONDANSETRON INJ 4 MG/2 ML VIAL IV PUSH (06:25)
[2022-02-05 07:12] LABS: Hypersegmented Neutrophils Present; Hypochromasia 1+ (NORMAL); Platelet Estimate Adequate (Adequate)
--- NOTE | 2022-02-05 07:47 | WPDANESPN ---
Anes - Prog Note Post-Op Date/Time: 02/05/22 07:47 Cardiovascular status: normal Respiratory status: normal Airway patency: baseline Mental status: baseline Post-Op hydration status: normal Vital Signs: Last Vital Signs Temp 36.7 C 02/05/22 06:25 Pulse 97 02/05/22 06:25 Resp 12 02/05/22 06:25 BP 102/55 L 02/05/22 06:25 Pulse Ox 98 02/05/22 06:25 Pain Score (VAS): 0 I/O: Intake & Output 02/04/22 02/04/22 02/05/22 15:59 23:59 07:59 Intake Total 0 1390 100 Output Total 150 115 200 Balance -150 1275 -100 Laboratory Tests 02/05/22 05:20 02/05/22 05:20 02/05/22 02/05/22 05:20 05:20 WBC 22.5 H RBC 3.27 L Hgb 10.7 L Hct 34.4 L MCV 105.2 H MCH 32.7 MCHC 31.1 L RDW 12.7 Plt Count 200 MPV 10.4 Immature Gran % (Auto) 0.7 H Neut % (Auto) 88.0 H Lymph % (Auto) 5.[address] [place] % (Auto) 4.7 Eos % (Auto) 0.4 Baso % (Auto) 0.3 Lymph # (Auto) 1.32 [place] # (Auto) 1.1 H Eos # (Auto) 0.1 Baso # (Auto) 0.1 Abs Immat Gran (auto) 0.16 H Absolute Neuts (auto) 19.8 H Absolute Nucleated RBC 0.0 Nucleated RBC % 0.0 Hypersegmented Neuts Present Platelet Estimate Adequate Hypochromasia 1+ Sodium 139 Potassium 3.7 Chloride 103 Carbon Dioxide 27 Anion Gap 9 BUN 13 Creatinine 0.70 Estim Creat Clear Calc 44 Estimated GFR > 60 Glucose 113 H Calcium 8.0 L Microbiology 02/03/22 01:49 Urine Catheterized Urine Culture - Final Post-procedural complaints: none Patient Feedback: Patient satisfied with anesthetic care.
[2022-02-05] MEDS: PANTOPRAZOLE 40 MG TABLET PO (09:06)
[2022-02-05] MEDS: POTASSIUM CHLORIDE 20 MEQ TABLET.ER PO (09:06)
[2022-02-05] MEDS: MIRTAZAPINE 7.5 MG TABLET PO (09:06)
[2022-02-05] MEDS: busPIRone HCL 5 MG TABLET PO ×2 (09:06→20:54)
[2022-02-05] MEDS: busPIRone HCL 2.5 MG TABLET PO ×2 (09:06→20:55)
[2022-02-05] MEDS: ENOXAPARIN 30 MG/0.3 ML SYRINGE SUB-Q (09:06)
[2022-02-05] MEDS: DOCUSATE SODIUM 100 MG CAPSULE PO ×2 (09:06→18:16)
[2022-02-05] MEDS: DONEPEZIL HCL 10 MG TABLET PO (09:06)
[2022-02-05] MEDS: SERTRALINE HCL 50 MG TABLET PO (09:07)
[2022-02-05] MEDS: SENNOSIDES 8.6 MG TABLET 17.2 MG PO (09:07)
[2022-02-05] MEDS: MORPHINE SULFATE (*CRX) 2 MG/ML INJ 1 MG IV PUSH (11:31)
--- NOTE | 2022-02-05 13:00 | PM.PNORT ---
Progress Note: A&P Assessment and Plan (1) Closed intertrochanteric fracture of left hip: Qualifiers: Encounter type: initial encounter Fracture alignment: displaced Qualified Code(s): S72.142A - Displaced intertrochanteric fracture of left femur, initial encounter for closed fracture Code(s): S72.142A - Displaced intertrochanteric fracture of left femur, initial encounter for closed fracture Status: Acute Assessment and Plan: POD 1: ORIF left hip intertrochanteric fracture with short cephalomedullary nail. Making good progress. Patient typically lives in a [facility] care. She is non ambulatory. Plan to discharge to SNF once patient is cleared medically. Ortho instructions: D/C to SNF/rehab Xray in 2 weeks. f/u in office in 4 weeks with xrays. Wound Care: Remove arleth at 2 weeks post op. Daily dressing changes until healed. DVT prophylaxis: continue Lovenox for 30 days total Pain medication: Tylenol. Subjective Subjective Date/Time Seen: 02/05/22 13:00 Patient resting comfortably in chair. States she is not having pain at this time. Patient is a poor historian, family memeber in the room states she has been having pain that is waking her up. Review of Systems Review of Systems: Pain right hip and leg with movement. Denied pain elsewhere. ROS unobtainable: Yes unobtainable due to medical condition Exam Narrative: Thin 81 y/o female. Resting comfortably in bed. Wearing compression socks bilaterally. Dressing dry and intact with no drainage. Moderate swelling. No edema. No ecchymosis. No erythema. No hematoma. Range of motion limited due to pain. Calf nontender. Thigh nontender. No varicosities. Distal pulses palpable. Wiggles toes. Objective Data Vital Signs Vital Signs: Vital Signs - 24 hr 02/04/22 13:54 02/04/22 15:56 02/04/22 16:10 Temperature 96.8 F L 97.8 F Pulse Rate 94 90 80 Respiratory Rate 16 16 20 Blood Pressure 122/70 136/76 144/77 H Pulse Oximetry 98 100 100 02/04/22 16:25 02/04/22 16:40 02/04/22 16:55 Temperature Pulse Rate 83 84 89 Respiratory Rate 14 14 24 H Blood Pressure 145/81 H 153/78 H 152/88 H Pulse Oximetry 100 100 100 02/04/22 17:10 02/04/22 17:25 02/04/22 17:40 Temperature Pulse Rate 84 82 86 Respiratory Rate 20 20 20 Blood Pressure 155/69 H 135/82 153/78 H Pulse Oximetry 92 93 93 02/04/22 17:56 02/04/22 18:15 02/04/22 18:45 Temperature 97.3 F L Pulse Rate 83 91 Respiratory Rate 20 22 H Blood Pressure 139/91 H 118/61 Pulse Oximetry 96 93 93 02/04/22 19:48 02/04/22 20:00 02/04/22 21:51 Temperature 97.9 F Pulse Rate 100 Respiratory Rate 16 Blood Pressure 103/59 L Pulse Oximetry 90 95 95 02/05/22 00:00 02/05/22 06:25 02/05/22 08:52 Temperature 97.7 F 98.0 F Pulse Rate 102 H 97 Respiratory Rate 14 12 Blood Pressure 111/57 L 102/55 L Pulse Oximetry 96 98 90 02/05/22 09:00 02/05/22 09:20 Temperature 96.7 F L Pulse Rate 97 Respiratory Rate 16 Blood Pressure 121/59 L Pulse Oximetry 100 98 Intake/Output Intake/Output: Intake & Output 02/02/22 02/03/22 02/04/22 02/05/22 23:59 23:59 23:59 23:59 Intake Total 132 549 2911 340 Output Total 400 465 200 Balance 100 170 925 140 Meds/Results Medications: Active Medications Generic Name Dose Route Start Last Admin Trade Name Freq PRN Reason Stop Dose Admin Buspirone HCl 5 mg 02/02/22 23:05 02/05/22 09:06 Buspirone Hcl 5 Mg Tablet PO 5 mg Q12HR TOREY Administration Buspirone HCl 2.5 mg 02/02/22 23:05 02/05/22 09:06 Buspirone Hcl 2.5 Mg Tablet PO 2.5 mg Q12HR TOREY Administration Docusate Sodium 100 mg 02/03/22 09:00 02/05/22 09:06 Docusate Sodium 100 Mg Capsule PO 100 mg BID TOREY Administration Donepezil HCl 10 mg 02/03/22 09:00 02/05/22 09:06 Donepezil Hcl 10 Mg Tablet PO 10 mg DAILY TOREY Administration Enoxaparin Sodium 30 mg 02/05/22 09:00 02/05/22 09:06 Enoxaparin 30 Mg/
--- NOTE | 2022-02-05 14:39 | P.PNIM_ITS ---
Progress Note: A&P Assessment and Plan (1) Unwitnessed fall: Code(s): R29.6 - Repeated falls Status: Acute Assessment and Plan: Patient was found on the ground at her nursing facility. Fall was unwitnessed. 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 Mandible x-ray showed no fracture. No further complaints of jaw pain. * Fall precautions (2) Closed intertrochanteric fracture of left hip: Qualifiers: Encounter type: initial encounter Fracture alignment: displaced Qualified Code(s): S72.142A - Displaced intertrochanteric fracture of left femur, initial encounter for closed fracture Code(s): S72.142A - Displaced intertrochanteric fracture of left femur, initial encounter for closed fracture Status: Acute Assessment and Plan: Nondisplaced left IT fracture noted on imaging. * Appreciate orthopedic surgery consultation * Underwent ORIF on 02/[address] Bustos. Tolerated procedure well * Weight-bearing status per Orthopedic surgery * Appreciate PT/OT eval * Continue Flynn catheter until mobility is improved. Plan for voiding trial tomorrow morning * Supportive care. Limit narcotics given hypoxia with morphine (3) UTI (urinary tract infection): Code(s): N39.0 - Urinary tract infection, site not specified Status: Acute Assessment and Plan: Urinalysis grossly abnormal and patient with leukocytosis. Unable to indicate urinary symptoms * Continue IV Rocephin * Urine culture with growth of mixed daljit. * Due to clinical picture and pt inability to report symptoms, will continue with treatment (4) Abnormal chest x-ray: Code(s): R93.89 - Abnormal findings on diagnostic imaging of other specified body structures Status: Acute Assessment and Plan: Increased interstitial opacities in the right lung may reflect progressive fibrosis though infection is not excluded. * Patient reports no history and has no symptoms to suggest underlying infection * She is requiring supplemental O2 due to episode of hypoxia following morphine however O2 sats have been 95-100% and oxygen should be weaned * She has no respiratory symptoms and no further treatment is indicated at this time (5) Hypothyroidism: Code(s): E03.9 - Hypothyroidism, unspecified Status: Acute Assessment and Plan: TSH is within normal limits * Continue levothyroxine (6) Dementia: Code(s): F03.90 - Unspecified dementia without behavioral disturbance Status: Acute Assessment and Plan: At baseline * Continue donepezil and memantine. (7) Leukocytosis: Code(s): D72.829 - Elevated white blood cell count, unspecified Status: Acute Assessment and Plan: Patient with increasing leukocytosis * WBC was elevated on presentation but improved with ceftriaxone for treatment of UTI * WBC increased to 22,000 today. May be reactive secondary to surgery * No additional signs/symptoms to suggest secondary source of infection * Vital signs are stable. Patient is afebrile * Has not received steroids * Continue to monitor CBC with differential Subjective Date/time seen: 02/05/22 14:39 Interval history: Date of service: 02/05/2022 Awilda Salazar is an 81-year-old female with a history of dementia, hypertension, hypothyroidism, hyperlipidemia wh
--- NOTE | 2022-02-05 14:39 | PM.IMPN ---
Progress Note: A&P Assessment and Plan (1) Unwitnessed fall: Code(s): R29.6 - Repeated falls Status: Acute Assessment and Plan: Patient was found on the ground at her nursing facility. Fall was unwitnessed. 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 Mandible x-ray showed no fracture. No further complaints of jaw pain. Fall precautions (2) Closed intertrochanteric fracture of left hip: Qualifiers: Encounter type: initial encounter Fracture alignment: displaced Qualified Code(s): S72.142A - Displaced intertrochanteric fracture of left femur, initial encounter for closed fracture Code(s): S72.142A - Displaced intertrochanteric fracture of left femur, initial encounter for closed fracture Status: Acute Assessment and Plan: Nondisplaced left IT fracture noted on imaging. Appreciate orthopedic surgery consultation Underwent ORIF on 02/[address] Bustos. Tolerated procedure well Weight-bearing status per Orthopedic surgery Appreciate PT/OT eval Continue Flynn catheter until mobility is improved. Plan for voiding trial tomorrow morning Supportive care. Limit narcotics given hypoxia with morphine (3) UTI (urinary tract infection): Code(s): N39.0 - Urinary tract infection, site not specified Status: Acute Assessment and Plan: Urinalysis grossly abnormal and patient with leukocytosis. Unable to indicate urinary symptoms Continue IV Rocephin Urine culture with growth of mixed daljit. Due to clinical picture and pt inability to report symptoms, will continue with treatment (4) Abnormal chest x-ray: Code(s): R93.89 - Abnormal findings on diagnostic imaging of other specified body structures Status: Acute Assessment and Plan: Increased interstitial opacities in the right lung may reflect progressive fibrosis though infection is not excluded. Patient reports no history and has no symptoms to suggest underlying infection She is requiring supplemental O2 due to episode of hypoxia following morphine however O2 sats have been 95-100% and oxygen should be weaned She has no respiratory symptoms and no further treatment is indicated at this time (5) Hypothyroidism: Code(s): E03.9 - Hypothyroidism, unspecified Status: Acute Assessment and Plan: TSH is within normal limits Continue levothyroxine (6) Dementia: Code(s): F03.90 - Unspecified dementia without behavioral disturbance Status: Acute Assessment and Plan: At baseline Continue donepezil and memantine. (7) Leukocytosis: Code(s): D72.829 - Elevated white blood cell count, unspecified Status: Acute Assessment and Plan: Patient with increasing leukocytosis WBC was elevated on presentation but improved with ceftriaxone for treatment of UTI WBC increased to 22,000 today. May be reactive secondary to surgery No additional signs/symptoms to suggest secondary source of infection Vital signs are stable. Patient is afebrile Has not received steroids Continue to monitor CBC with differential Subjective Date/time seen: 02/05/22 14:39 Interval history: Date of service: 02/05/2022 Awilda Salazar is an 81-year-old female with a history of dementia, hypertension, hypothyroidism, hyperlipidemia who is seen in follow-up for left hip fracture after an unwitnessed fall. Her daughter is present at the bedside today. The patient is a poor historian given her dementia. She reports 6/10 pain in left hip today. She did participate in therapy and was able to get from the bed to the chair. She denies shortness of breath, cough, or chest pain. She is not able to provide any additional history. She has been eating well and her daughter confirms thi
[2022-02-05] MEDS: MELATONIN 5 MG TABLET PO (20:54)
[2022-02-06] VITALS (12 sets, daily range): BP systolic 113–142; BP diastolic 55–71; PULSE 83–94; RESP 14–20; TEMP 35.6–36.8; O2SAT 85–100
[2022-02-06 00:40] LABS: Glucose Point of Care 105 mg/dl (65-105)
[2022-02-06 05:57] LABS: Basophils Percent Auto 0.4 % (0.2-1.2); Eosinophils Absolute Auto 0.4 K/mm3 (0-0.3); Eosinophils Percent Auto 3.4 % (0-4.4); Hematocrit 30.1 % (37.0-47.0); Hemoglobin 9.5 g/dL (12.0-15.0); Immature Granulocyte Percent A 0.9 % (0-0.5); Lymphocytes Absolute Auto 1.26 K/mm3 (0.9-3.2); Lymphocytes Percent Auto 11.7 % (18.3-44.2); Mean Corpuscular HGB Conc 31.6 g/dl (32-36); Mean Corpuscular Hemoglobin 32.4 pg (26-34); Mean Corpuscular Volume 102.7 fl (80-100); Mean Platelet Volume 10.5 fl (7.4-10.4); Monocytes Absolute Auto 0.7 K/mm3 (0.1-0.6); Monocytes Percent Auto 6.4 % (2.6-8.5); Neutrophils Absolute Auto 8.3 K/mm3 (1.3-6.7); Neutrophils Percent Auto 77.2 % (45.5-73.1); Platelet Count Result 160 k/mm3 (150-375); Red Blood Count 2.93 M/mm3 (4.2-5.4); Red Cell Distribution Width 12.6 % (11.5-14.5); White Blood Count 10.8 K/mm3 (4.5-10.0)
[2022-02-06 06:17] LABS: Anion Gap 3 mmol/L (8-16); Blood Urea Nitrogen 12 mg/dL (7-17); Calcium 7.6 mg/dL (8.4-10.2); Carbon Dioxide 30 mmol/L (22-30); Chloride 101 mmol/L (98-107); Estimated CRCL calculation 60 ml/min; Estimated Glomerular Filt Rate > 60; Glucose 98 mg/dL (65-110); Potassium 3.6 mmol/L (3.4-5.0); Sodium 134 mmol/L (137-145)
[2022-02-06] MEDS: LEVOTHYROXINE SODIUM 50 MCG TABLET PO (06:37)
--- NOTE | 2022-02-06 07:14 | PM.PNORT ---
Progress Note: A&P Assessment and Plan (1) Closed intertrochanteric fracture of left hip: Qualifiers: Encounter type: initial encounter Fracture alignment: displaced Qualified Code(s): S72.142A - Displaced intertrochanteric fracture of left femur, initial encounter for closed fracture Code(s): S72.142A - Displaced intertrochanteric fracture of left femur, initial encounter for closed fracture Status: Acute Assessment and Plan: POD 2: ORIF left hip intertrochanteric fracture with short cephalomedullary nail. Sleeping comfortably at the time of my visit. Making good progress. Patient typically lives in a memory care. She is non ambulatory. Plan to discharge to SNF once patient is cleared medically. Ortho instructions: D/C to SNF/rehab Xray in 2 weeks. f/u in office in 4 weeks with xrays. Wound Care: Remove arleth at 2 weeks post op. Daily dressing changes until healed. DVT prophylaxis: continue Lovenox for 30 days total Pain medication: Tylenol. Subjective Subjective Date/Time Seen: 02/06/22 07:14 Patient sleeping comfortably at the time of my visit. Review of Systems Review of Systems: ROS unobtainable: Yes unobtainable due to mental status Exam Narrative: Thin 81 y/o elderly female. Resting comfortably in bed. Wearing compression socks bilaterally. Dressing dry and intact with no drainage. Moderate swelling. No edema. No ecchymosis. No erythema. No hematoma. Range of motion limited due to pain. Calf nontender. Thigh nontender. No varicosities. Distal pulses palpable. Objective Data Vital Signs Vital Signs: Vital Signs - 24 hr 02/05/22 08:52 02/05/22 09:00 02/05/22 09:20 Temperature 96.7 F L Pulse Rate 97 Respiratory Rate 16 Blood Pressure 121/59 L Pulse Oximetry 90 100 98 02/05/22 13:10 02/05/22 15:38 02/05/22 20:00 Temperature 97.1 F L Pulse Rate 93 92 Respiratory Rate 14 14 Blood Pressure 120/66 137/65 Pulse Oximetry 100 99 02/05/22 21:48 02/06/22 00:00 02/06/22 06:26 Temperature 97.9 F 97.8 F 98.2 F Pulse Rate 92 83 83 Respiratory Rate 14 14 14 Blood Pressure 119/58 L 142/71 H 138/65 Pulse Oximetry 99 98 100 Intake/Output Intake/Output: Intake & Output 02/03/22 02/04/22 02/05/22 02/06/22 23:59 23:59 23:59 23:59 Intake Total 570 1390 800 200 Output Total 400 465 350 175 Balance 170 925 450 25 Meds/Results Medications: Active Medications Generic Name Dose Route Start Last Admin Trade Name Freq PRN Reason Stop Dose Admin Buspirone HCl 5 mg 02/02/22 23:05 02/05/22 20:54 Buspirone Hcl 5 Mg Tablet PO 5 mg Q12HR TOREY Administration Buspirone HCl 2.5 mg 02/02/22 23:05 02/05/22 20:55 Buspirone Hcl 2.5 Mg Tablet PO 2.5 mg Q12HR TOREY Administration Docusate Sodium 100 mg 02/03/22 09:00 02/05/22 18:16 Docusate Sodium 100 Mg Capsule PO 100 mg BID TOREY Administration Donepezil HCl 10 mg 02/03/22 09:00 02/05/22 09:06 Donepezil Hcl 10 Mg Tablet PO 10 mg DAILY TOREY Administration Enoxaparin Sodium 30 mg 02/05/22 09:00 02/05/22 09:06 Enoxaparin 30 Mg/0.3 Ml Syringe SUB-Q 30 mg DAILY TOREY Administration Fentanyl Citrate 25 mcg 02/04/22 13:48 Fentanyl Citrate Inj (*Crx) 100 Mcg/2 Ml Vial IV PUSH Q2M PRN Pain Ceftriaxone Sodium/Dextrose 1 gm in 50 mls @ 100 mls/hr 02/02/22 23:00 02/05/22 21:20 Rocephin 1 Gm/D5w 50 Ml IVPB Infused DAILY@2100 TOREY Infusion Lactated Ringer's 1,000 mls @ 30 mls/hr 02/04/22 13:50 02/04/22 16:28 Lr - Lactated Ringers Iv IV CONT Infused .Q24H TOREY Infusion Lactated Ringer's 1,000 mls @ 30 mls/hr 02/04/22 13:50 02/04/22 17:50 Lr - Lactated Ringers Iv IV CONT Infused .Q24H TOREY Infusion Levothyroxine Sodium 50 mcg 02/03/22 06:30 02/06/22 06:37 Levothyroxine Sodium 50 Mcg Tablet PO 50 mcg DAILY@0630 TOREY Administration Melatonin 5 mg 02/03/22 21:00 02/05/22 20:54 Melatonin 5 Mg Tablet PO 5
--- NOTE | 2022-02-06 08:17 | PCPTNOTE ---
Patient refused treatment this session due to patient wanting to rest at this time.
[2022-02-06] MEDS: busPIRone HCL 5 MG TABLET PO ×2 (09:03→20:18)
[2022-02-06] MEDS: MIRTAZAPINE 7.5 MG TABLET PO (09:03)
[2022-02-06] MEDS: busPIRone HCL 2.5 MG TABLET PO ×2 (09:03→20:18)
[2022-02-06] MEDS: DONEPEZIL HCL 10 MG TABLET PO (09:03)
[2022-02-06] MEDS: SENNOSIDES 8.6 MG TABLET 17.2 MG PO (09:03)
[2022-02-06] MEDS: SERTRALINE HCL 50 MG TABLET PO (09:03)
[2022-02-06] MEDS: POTASSIUM CHLORIDE 20 MEQ TABLET.ER PO (09:03)
[2022-02-06] MEDS: PANTOPRAZOLE 40 MG TABLET PO (09:04)
[2022-02-06] MEDS: ENOXAPARIN 30 MG/0.3 ML SYRINGE SUB-Q (09:04)
[2022-02-06] MEDS: DOCUSATE SODIUM 100 MG CAPSULE PO ×2 (09:06→17:27)
[2022-02-06] MEDS: polyethylene glycoL 3350 17 GM POWD.PACK PO (09:06)
--- NOTE | 2022-02-06 10:50 | PCPTNOTE ---
Patient refused treatment this session. Educated patient on the importance of therapy and sitting up in chair, patient continued to refuse.
--- NOTE | 2022-02-06 14:05 | P.PNIM_ITS ---
Progress Note: A&P Assessment and Plan (1) Unwitnessed fall: Code(s): R29.6 - Repeated falls Status: Acute Assessment and Plan: Patient was found on the ground at her nursing facility. Fall was unwitnessed. 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 Mandible x-ray showed no fracture. No further complaints of jaw pain. * Fall precautions (2) Closed intertrochanteric fracture of left hip: Qualifiers: Encounter type: initial encounter Fracture alignment: displaced Qualified Code(s): S72.142A - Displaced intertrochanteric fracture of left femur, initial encounter for closed fracture Code(s): S72.142A - Displaced intertrochanteric fracture of left femur, initial encounter for closed fracture Status: Acute Assessment and Plan: Nondisplaced left IT fracture noted on imaging. * Appreciate orthopedic surgery consultation * Underwent ORIF on 02/[address] Bustos. Tolerated procedure well * Weight-bearing status per Orthopedic surgery * Appreciate PT/OT eval * Flynn catheter removed today. Patient is voiding. Monitor urine output * Supportive care. Limit narcotics given hypoxia with morphine (3) UTI (urinary tract infection): Code(s): N39.0 - Urinary tract infection, site not specified Status: Acute Assessment and Plan: Urinalysis grossly abnormal and patient with leukocytosis. Unable to indicate urinary symptoms * Continue IV Rocephin * Urine culture with growth of mixed daljit. * Due to clinical picture and pt inability to report symptoms, will continue with treatment (4) Abnormal chest x-ray: Code(s): R93.89 - Abnormal findings on diagnostic imaging of other specified body structures Status: Acute Assessment and Plan: Increased interstitial opacities in the right lung may reflect progressive fibrosis though infection is not excluded. * She was initiated on azithromycin at presentation which was discontinued after initial dose as there were no clinical signs/symptoms to suggest underlying infection * She was requiring supplemental O2 due to episode of hypoxia following morphine however O2 sats were remaining stable therefore oxygen was weaned. Pt not able to tolerate weaning and became hypoxic at 86%. * Repeat CXR given hypoxia was relatively unchanged. However as the patient is unable to indicate symptoms, will resume azithromycin in combination with ceftriaxone for CAP coverage. QTc noted. * Pt would benefit from incentive spirometry however unsure if she will be able to utilize. Nursing assistance appreciated. * Continue supplemental O2 as needed. Wean as tolerated. (5) Hypothyroidism: Code(s): E03.9 - Hypothyroidism, unspecified Status: Acute Assessment and Plan: TSH is within normal limits * Continue levothyroxine (6) Dementia: Code(s): F03.90 - Unspecified dementia without behavioral disturbance Status: Acute Assessment and Plan: At baseline * Continue donepezil and memantine. (7) Leukocytosis: Code(s): D72.829 - Elevated white blood cell count, unspecified Status: Acute Assessment and Plan: Nearly resolved. * WBC elevated on presentation which may have been reactive due to fall * Pt had increase in WBC postoperatively, likely reactive secondary to surgery * WBC significantly improved today at 10.
--- NOTE | 2022-02-06 14:05 | PM.IMPN ---
Progress Note: A&P Assessment and Plan (1) Unwitnessed fall: Code(s): R29.6 - Repeated falls Status: Acute Assessment and Plan: Patient was found on the ground at her nursing facility. Fall was unwitnessed. 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 Mandible x-ray showed no fracture. No further complaints of jaw pain. Fall precautions (2) Closed intertrochanteric fracture of left hip: Qualifiers: Encounter type: initial encounter Fracture alignment: displaced Qualified Code(s): S72.142A - Displaced intertrochanteric fracture of left femur, initial encounter for closed fracture Code(s): S72.142A - Displaced intertrochanteric fracture of left femur, initial encounter for closed fracture Status: Acute Assessment and Plan: Nondisplaced left IT fracture noted on imaging. Appreciate orthopedic surgery consultation Underwent ORIF on 02/[address] Bustos. Tolerated procedure well Weight-bearing status per Orthopedic surgery Appreciate PT/OT eval Flynn catheter removed today. Patient is voiding. Monitor urine output Supportive care. Limit narcotics given hypoxia with morphine (3) UTI (urinary tract infection): Code(s): N39.0 - Urinary tract infection, site not specified Status: Acute Assessment and Plan: Urinalysis grossly abnormal and patient with leukocytosis. Unable to indicate urinary symptoms Continue IV Rocephin Urine culture with growth of mixed daljit. Due to clinical picture and pt inability to report symptoms, will continue with treatment (4) Abnormal chest x-ray: Code(s): R93.89 - Abnormal findings on diagnostic imaging of other specified body structures Status: Acute Assessment and Plan: Increased interstitial opacities in the right lung may reflect progressive fibrosis though infection is not excluded. She was initiated on azithromycin at presentation which was discontinued after initial dose as there were no clinical signs/symptoms to suggest underlying infection She was requiring supplemental O2 due to episode of hypoxia following morphine however O2 sats were remaining stable therefore oxygen was weaned. Pt not able to tolerate weaning and became hypoxic at 86%. Repeat CXR given hypoxia was relatively unchanged. However as the patient is unable to indicate symptoms, will resume azithromycin in combination with ceftriaxone for CAP coverage. QTc noted. Pt would benefit from incentive spirometry however unsure if she will be able to utilize. Nursing assistance appreciated. Continue supplemental O2 as needed. Wean as tolerated. (5) Hypothyroidism: Code(s): E03.9 - Hypothyroidism, unspecified Status: Acute Assessment and Plan: TSH is within normal limits Continue levothyroxine (6) Dementia: Code(s): F03.90 - Unspecified dementia without behavioral disturbance Status: Acute Assessment and Plan: At baseline Continue donepezil and memantine. (7) Leukocytosis: Code(s): D72.829 - Elevated white blood cell count, unspecified Status: Acute Assessment and Plan: Nearly resolved. WBC elevated on presentation which may have been reactive due to fall Pt had increase in WBC postoperatively, likely reactive secondary to surgery WBC significantly improved today at 10.8. Continue to monitor WBC (8) Macrocytic anemia: Code(s): D53.9 - Nutritional anemia, unspecified Status: Acute Assessment and Plan: Decline in hemoglobin postoperatively likely due to surgical blood loss. 9.5 today Will check iron panel, B12, and folate Monitor H&H No evidence of bleeding Subjective Date/time seen: 02/06/22 14:05 Interval history: Date of service: 02/05/2022
[2022-02-06] MEDS: AZITHROMYCIN 250 MG TABLET 500 MG PO (17:27)
[2022-02-06] MEDS: MELATONIN 5 MG TABLET PO (20:18)
[2022-02-07] VITALS (11 sets, daily range): BP systolic 109–135; BP diastolic 48–68; PULSE 86–98; RESP 15–18; TEMP 35.6–36.6; O2SAT 84–100
[2022-02-07] MEDS: LEVOTHYROXINE SODIUM 50 MCG TABLET PO (06:06)
[2022-02-07 06:38] LABS: Hematocrit 29.1 % (37.0-47.0); Hemoglobin 9.3 g/dL (12.0-15.0); Mean Corpuscular Hemoglobin 33.1 pg (26-34); Mean Corpuscular Volume 103.6 fl (80-100); Mean Platelet Volume 10.7 fl (7.4-10.4); Platelet Count Result 186 k/mm3 (150-375); Red Blood Count 2.81 M/mm3 (4.2-5.4); Red Cell Distribution Width 12.4 % (11.5-14.5); White Blood Count 10.9 K/mm3 (4.5-10.0)
[2022-02-07 06:48] LABS: Anion Gap 4 mmol/L (8-16); Blood Urea Nitrogen 12 mg/dL (7-17); Calcium 7.8 mg/dL (8.4-10.2); Carbon Dioxide 30 mmol/L (22-30); Chloride 101 mmol/L (98-107); Estimated CRCL calculation 51 ml/min; Estimated Glomerular Filt Rate > 60; Glucose 100 mg/dL (65-110); Potassium 3.5 mmol/L (3.4-5.0); Sodium 135 mmol/L (137-145)
[2022-02-07 07:08] LABS: Iron 34 ug/dL (37-170)
--- NOTE | 2022-02-07 07:11 | P.PNIM_ITS ---
Progress Note: A&P Assessment and Plan (1) Unwitnessed fall: Code(s): R29.6 - Repeated falls Status: Acute Assessment and Plan: Patient was found on the ground at her nursing facility. Fall was unwitnessed. 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 Mandible x-ray showed no fracture. No further complaints of jaw pain. * Fall precautions (2) Closed intertrochanteric fracture of left hip: Qualifiers: Encounter type: initial encounter Fracture alignment: displaced Qualified Code(s): S72.142A - Displaced intertrochanteric fracture of left femur, initial encounter for closed fracture Code(s): S72.142A - Displaced intertrochanteric fracture of left femur, initial encounter for closed fracture Status: Acute Assessment and Plan: Nondisplaced left IT fracture noted on imaging. * Appreciate orthopedic surgery consultation * Underwent ORIF on 02/[address] Bustos. Tolerated procedure well * Weight-bearing status per Orthopedic surgery * D/C to SNF/rehab * Xray in 2 weeks. f/u in office in 4 weeks with xrays. * Wound Care: Remove arleth at 2 weeks post op. Daily dressing changes until healed. * DVT prophylaxis: continue Lovenox for 30 days total * Pain medication: Tylenol. * Flynn catheter removed today. Patient is voiding. Monitor closely as it appears she is urinating less, but also has poor PO intake. 255 mL out yesterday. * Supportive care. Limit narcotics given hypoxia with morphine (3) UTI (urinary tract infection): Code(s): N39.0 - Urinary tract infection, site not specified Status: Acute Assessment and Plan: Urinalysis grossly abnormal and patient with leukocytosis. Unable to indicate urinary symptoms * Will transition to PO Augmentin today with plan for discharge tomorrow. * Urine culture with growth of mixed daljit. * Due to clinical picture and pt inability to report symptoms, will continue with treatment (4) Abnormal chest x-ray: Code(s): R93.89 - Abnormal findings on diagnostic imaging of other specified body structures Status: Acute Assessment and Plan: Increased interstitial opacities in the right lung may reflect progressive fibrosis though infection is not excluded. * She was initiated on azithromycin at presentation which was discontinued after initial dose as there were no clinical signs/symptoms to suggest underlying infection * She was requiring supplemental O2 due to episode of hypoxia following morphine however O2 sats were remaining stable therefore oxygen was weaned. Pt not able to tolerate weaning and became hypoxic at 86%. * Will re-attempt to wean today. If not tolerated, home O2 eval will be performed. * Repeat CXR given hypoxia was relatively unchanged. However as the patient is unable to indicate symptoms, will resume azithromycin in combination with oral augmentin for CAP coverage. QTc noted. * Pt would benefit from incentive spirometry however unsure if she will be able to utilize. Nursing assistance appreciated. * Continue supplemental O2 as needed. (5) Hypothyroidism: Code(s): E03.9 - Hypothyroidism, unspecified Status: Acute Assessment and Plan: TSH is within normal limits * Continue levothyroxine (6) Dementia: Code(s): F03.90 - Unspecified dementia without behavioral disturbance Status: Acute Assessm
--- NOTE | 2022-02-07 07:11 | PM.IMPN ---
Progress Note: A&P Assessment and Plan (1) Unwitnessed fall: Code(s): R29.6 - Repeated falls Status: Acute Assessment and Plan: Patient was found on the ground at her nursing facility. Fall was unwitnessed. 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 Mandible x-ray showed no fracture. No further complaints of jaw pain. Fall precautions (2) Closed intertrochanteric fracture of left hip: Qualifiers: Encounter type: initial encounter Fracture alignment: displaced Qualified Code(s): S72.142A - Displaced intertrochanteric fracture of left femur, initial encounter for closed fracture Code(s): S72.142A - Displaced intertrochanteric fracture of left femur, initial encounter for closed fracture Status: Acute Assessment and Plan: Nondisplaced left IT fracture noted on imaging. Appreciate orthopedic surgery consultation Underwent ORIF on 02/[address] Bustos. Tolerated procedure well Weight-bearing status per Orthopedic surgery D/C to SNF/rehab Xray in 2 weeks. f/u in office in 4 weeks with xrays. Wound Care: Remove arleth at 2 weeks post op. Daily dressing changes until healed. DVT prophylaxis: continue Lovenox for 30 days total Pain medication: Tylenol. Flynn catheter removed today. Patient is voiding. Monitor closely as it appears she is urinating less, but also has poor PO intake. 255 mL out yesterday. Supportive care. Limit narcotics given hypoxia with morphine (3) UTI (urinary tract infection): Code(s): N39.0 - Urinary tract infection, site not specified Status: Acute Assessment and Plan: Urinalysis grossly abnormal and patient with leukocytosis. Unable to indicate urinary symptoms Will transition to PO Augmentin today with plan for discharge tomorrow. Urine culture with growth of mixed daljit. Due to clinical picture and pt inability to report symptoms, will continue with treatment (4) Abnormal chest x-ray: Code(s): R93.89 - Abnormal findings on diagnostic imaging of other specified body structures Status: Acute Assessment and Plan: Increased interstitial opacities in the right lung may reflect progressive fibrosis though infection is not excluded. She was initiated on azithromycin at presentation which was discontinued after initial dose as there were no clinical signs/symptoms to suggest underlying infection She was requiring supplemental O2 due to episode of hypoxia following morphine however O2 sats were remaining stable therefore oxygen was weaned. Pt not able to tolerate weaning and became hypoxic at 86%. Will re-attempt to wean today. If not tolerated, home O2 eval will be performed. Repeat CXR given hypoxia was relatively unchanged. However as the patient is unable to indicate symptoms, will resume azithromycin in combination with oral augmentin for CAP coverage. QTc noted. Pt would benefit from incentive spirometry however unsure if she will be able to utilize. Nursing assistance appreciated. Continue supplemental O2 as needed. (5) Hypothyroidism: Code(s): E03.9 - Hypothyroidism, unspecified Status: Acute Assessment and Plan: TSH is within normal limits Continue levothyroxine (6) Dementia: Code(s): F03.90 - Unspecified dementia without behavioral disturbance Status: Acute Assessment and Plan: At baseline Continue donepezil and memantine. (7) Leukocytosis: Code(s): D72.829 - Elevated white blood cell count, unspecified Status: Acute Assessment and Plan: Nearly resolved. WBC elevated on presentation which may have been reactive due to fall Pt had increase in WBC postoperatively, likely reactive secondary to surgery WBC mildly elevated today at 10.9. Contin
[2022-02-07 07:18] LABS: Percent Iron Saturation 23 % (20-50)
[2022-02-07 07:54] LABS: Folic Acid > 20.0 ng/mL (2.76->20); Vitamin B12 > 1000.0 pg/mL (239-931)
--- NOTE | 2022-02-07 08:44 | PM.PNORT ---
Progress Note: A&P Assessment and Plan (1) Closed intertrochanteric fracture of left hip: Qualifiers: Encounter type: initial encounter Fracture alignment: displaced Qualified Code(s): S72.142A - Displaced intertrochanteric fracture of left femur, initial encounter for closed fracture Code(s): S72.142A - Displaced intertrochanteric fracture of left femur, initial encounter for closed fracture Status: Acute Assessment and Plan: POD 3: ORIF left hip intertrochanteric fracture with short cephalomedullary nail. Resting comfortably at the time of my visit. Making good progress. Patient typically lives in a memory care. She is non ambulatory. Plan to discharge to SNF once patient is cleared medically. Ortho instructions: D/C to SNF/rehab Xray in 2 weeks. f/u in office in 4 weeks with xrays. Wound Care: Remove arleth at 2 weeks post op. Daily dressing changes until healed. DVT prophylaxis: continue Lovenox for 30 days total Pain medication: Tylenol. Subjective Subjective Date/Time Seen: 02/07/22 08:44 Patient resting comfortably in bed. Complains of pain in her hip. No other complaints. Review of Systems Review of Systems: ROS unobtainable: Yes unobtainable due to mental status Exam Narrative: Thin 81 y/o elderly female. Resting comfortably in bed. Wearing compression socks bilaterally. Dressing dry and intact with no drainage. Moderate swelling. No edema. No ecchymosis. No erythema. No hematoma. Range of motion limited due to pain. Calf nontender. Thigh nontender. No varicosities. Distal pulses palpable. Wiggles toes. Objective Data Vital Signs Vital Signs: Vital Signs - 24 hr 02/06/22 09:11 02/06/22 09:20 02/06/22 09:49 Temperature 97.9 F Pulse Rate 89 93 Respiratory Rate 16 20 Blood Pressure 116/56 L 117/59 L Pulse Oximetry 94 95 100 02/06/22 12:00 02/06/22 15:47 02/06/22 19:37 Temperature 97.4 F L 98 F 96.0 F L Pulse Rate 90 92 94 Respiratory Rate 18 16 18 Blood Pressure 113/55 L 121/59 L 126/57 L Pulse Oximetry 96 99 97 02/06/22 20:00 02/06/22 20:10 02/06/22 21:05 Temperature Pulse Rate 94 Respiratory Rate Blood Pressure Pulse Oximetry 95 96 85 L 02/07/22 00:00 02/07/22 04:00 Temperature 96.0 F L 96.2 F L Pulse Rate 86 87 Respiratory Rate 18 18 Blood Pressure 119/60 111/48 L Pulse Oximetry 99 100 Intake/Output Intake/Output: Intake & Output 02/04/22 02/05/22 02/06/22 02/07/22 23:59 23:59 23:59 23:59 Intake Total 1390 800 470 120 Output Total 465 350 225 Balance 925 450 245 120 Meds/Results Medications: Active Medications Generic Name Dose Route Start Last Admin Trade Name Freq PRN Reason Stop Dose Admin Azithromycin 500 mg 02/06/22 14:05 02/06/22 17:27 Azithromycin 250 Mg Tablet PO 500 mg DAILY TOREY Administration Buspirone HCl 5 mg 02/02/22 23:05 02/06/22 20:18 Buspirone Hcl 5 Mg Tablet PO 5 mg Q12HR TOREY Administration Buspirone HCl 2.5 mg 02/02/22 23:05 02/06/22 20:18 Buspirone Hcl 2.5 Mg Tablet PO 2.5 mg Q12HR TOREY Administration Docusate Sodium 100 mg 02/03/22 09:00 02/06/22 17:27 Docusate Sodium 100 Mg Capsule PO 100 mg BID TOREY Administration Donepezil HCl 10 mg 02/03/22 09:00 02/06/22 09:03 Donepezil Hcl 10 Mg Tablet PO 10 mg DAILY TOREY Administration Enoxaparin Sodium 30 mg 02/05/22 09:00 02/06/22 09:04 Enoxaparin 30 Mg/0.3 Ml Syringe SUB-Q 30 mg DAILY TOREY Administration Fentanyl Citrate 25 mcg 02/04/22 13:48 Fentanyl Citrate Inj (*Crx) 100 Mcg/2 Ml Vial IV PUSH Q2M PRN Pain Ceftriaxone Sodium/Dextrose 1 gm in 50 mls @ 100 mls/hr 02/02/22 23:00 02/06/22 20:48 Rocephin 1 Gm/D5w 50 Ml IVPB Infused DAILY@2100 TOREY Infusion Levothyroxine Sodium 50 mcg 02/03/22 06:30 02/07/22 06:06 Levothyroxine Sodium 50 Mcg Tablet PO 50 mcg DAILY@0630 TOREY Administration Melatonin 5 mg 02/03/22 21:00 02/06/22 2
--- NOTE | 2022-02-07 08:52 | PCPTNOTE ---
Patient refused treatment this session due to patient wanting to rest at this time. Explained the importance of therapy and getting up to chair, patient continued to refuse.
[2022-02-07] MEDS: DONEPEZIL HCL 10 MG TABLET PO (09:00)
[2022-02-07] MEDS: POTASSIUM CHLORIDE 20 MEQ TABLET.ER PO (09:00)
[2022-02-07] MEDS: ENOXAPARIN 30 MG/0.3 ML SYRINGE SUB-Q (09:00)
[2022-02-07] MEDS: busPIRone HCL 2.5 MG TABLET PO ×2 (09:00→20:58)
[2022-02-07] MEDS: DOCUSATE SODIUM 100 MG CAPSULE PO ×2 (09:00→16:26)
[2022-02-07] MEDS: busPIRone HCL 5 MG TABLET PO ×2 (09:00→20:58)
[2022-02-07] MEDS: AZITHROMYCIN 250 MG TABLET 500 MG PO (09:00)
[2022-02-07] MEDS: MIRTAZAPINE 7.5 MG TABLET PO (09:01)
[2022-02-07] MEDS: PANTOPRAZOLE 40 MG TABLET PO (09:01)
[2022-02-07] MEDS: SERTRALINE HCL 50 MG TABLET PO (09:01)
[2022-02-07] MEDS: SENNOSIDES 8.6 MG TABLET 17.2 MG PO (09:01)
[2022-02-07] MEDS: polyethylene glycoL 3350 17 GM POWD.PACK PO (09:01)
[2022-02-07] MEDS: MORPHINE SULFATE (*CRX) 2 MG/ML INJ 1 MG IV PUSH (09:14)
--- NOTE | 2022-02-07 12:52 | PCPTNOTE ---
Patient refused treatment this session. Patient reported I don't want too. Encouraged patient to participate in therapy and even supine lower extremity exercises, patient continued to refuse.
[2022-02-07] MEDS: AMOXICILLIN/CLAVULANATE K 500-125 MG TAB 1 TABLET PO ×2 (13:04→16:25)
[2022-02-07] MEDS: CALCIUM CARBONATE (OSCAL) 500 MG TABLET PO (16:26)
[2022-02-07] MEDS: MELATONIN 5 MG TABLET PO (20:58)
[2022-02-08] VITALS (8 sets, daily range): BP systolic 115–136; BP diastolic 63–87; PULSE 86–103; RESP 16–20; TEMP 35.9–37.2; O2SAT 93–98
[2022-02-08] MEDS: LEVOTHYROXINE SODIUM 50 MCG TABLET PO (05:44)
[2022-02-08] MEDS: MORPHINE SULFATE (*CRX) 2 MG/ML INJ 1 MG IV PUSH ×2 (09:43→14:28)
[2022-02-08] MEDS: POLYSACCHARIDE IRON COMPLEX 150 MG CAPSULE PO (09:51)
[2022-02-08] MEDS: CALCIUM CARBONATE (OSCAL) 500 MG TABLET PO ×2 (09:51→17:19)
[2022-02-08] MEDS: AZITHROMYCIN 250 MG TABLET 500 MG PO (09:51)
[2022-02-08] MEDS: POTASSIUM CHLORIDE 20 MEQ TABLET.ER PO (09:51)
[2022-02-08] MEDS: AMOXICILLIN/CLAVULANATE K 500-125 MG TAB 1 TABLET PO ×3 (09:51→17:19)
[2022-02-08] MEDS: MIRTAZAPINE 7.5 MG TABLET PO (09:52)
[2022-02-08] MEDS: polyethylene glycoL 3350 17 GM POWD.PACK PO (09:52)
[2022-02-08] MEDS: SENNOSIDES 8.6 MG TABLET 17.2 MG PO (09:52)
[2022-02-08] MEDS: DONEPEZIL HCL 10 MG TABLET PO (09:52)
[2022-02-08] MEDS: DOCUSATE SODIUM 100 MG CAPSULE PO ×2 (09:52→17:19)
[2022-02-08] MEDS: SERTRALINE HCL 50 MG TABLET PO (09:52)
[2022-02-08] MEDS: ENOXAPARIN 30 MG/0.3 ML SYRINGE SUB-Q (09:52)
[2022-02-08] MEDS: PANTOPRAZOLE 40 MG TABLET PO (09:52)
[2022-02-08] MEDS: busPIRone HCL 5 MG TABLET PO ×2 (09:52→21:23)
[2022-02-08] MEDS: busPIRone HCL 2.5 MG TABLET PO ×2 (09:52→21:23)
[2022-02-08] MEDS: ONDANSETRON INJ 4 MG/2 ML VIAL IV PUSH (10:12)
--- NOTE | 2022-02-08 12:18 | PM.IMPN ---
Progress Note: A&P Assessment and Plan (1) Unwitnessed fall: Code(s): R29.6 - Repeated falls Status: Acute Assessment and Plan: Patient was found on the ground at her nursing facility. Fall was unwitnessed. Patient cannot recall details due to dementia Sp ORIF on 02/[address] Bustos (2) Closed intertrochanteric fracture of left hip: Qualifiers: Encounter type: initial encounter Fracture alignment: displaced Qualified Code(s): S72.142A - Displaced intertrochanteric fracture of left femur, initial encounter for closed fracture Code(s): S72.142A - Displaced intertrochanteric fracture of left femur, initial encounter for closed fracture Status: Acute Assessment and Plan: Nondisplaced left IT fracture noted on imaging. Post op day 4 ORIF on 02/[address] Bustos. Weight-bearing status per Orthopedic surgery D/C to SNF/rehab Xray in 2 weeks. f/u in office in 4 weeks with xrays. Wound Care: Remove arleth at 2 weeks post op. Daily dressing changes until healed. (3) UTI (urinary tract infection): Code(s): N39.0 - Urinary tract infection, site not specified Status: Acute Assessment and Plan: Pt on Augmentin Urine culture with growth of mixed daljit. (4) Abnormal chest x-ray: Code(s): R93.89 - Abnormal findings on diagnostic imaging of other specified body structures Status: Acute Assessment and Plan: Increased interstitial opacities in the right lung may reflect progressive fibrosis though infection is not excluded. She was initiated on azithromycin at presentation which was discontinued after initial dose as there were no clinical signs/symptoms to suggest underlying infection She was requiring supplemental O2 due to episode of hypoxia following morphine however O2 sats were remaining stable therefore oxygen was weaned. Pt not able to tolerate weaning and became hypoxic at 86%. Will re-attempt to wean today. If not tolerated, home O2 eval will be performed. Repeat CXR given hypoxia was relatively unchanged. However as the patient is unable to indicate symptoms, will resume azithromycin in combination with oral augmentin for CAP coverage. QTc noted. Pt is on 1 liter of oxygen (5) Hypothyroidism: Code(s): E03.9 - Hypothyroidism, unspecified Status: Acute Assessment and Plan: TSH is within normal limits Continue levothyroxine (6) Dementia: Code(s): F03.90 - Unspecified dementia without behavioral disturbance Status: Acute Assessment and Plan: At baseline Continue donepezil and memantine. (7) Leukocytosis: Code(s): D72.829 - Elevated white blood cell count, unspecified Status: Acute Assessment and Plan: Resolved (8) Macrocytic anemia: Code(s): D53.9 - Nutritional anemia, unspecified Status: Acute Assessment and Plan: Decline in hemoglobin postoperatively likely due to surgical blood loss. 9.3 Monitor H&H No evidence of bleeding Additional Plan Constipation and nausea increase pt laxatives pt is uneasy today with abdominal discomfort Dc 1-2 days back to facility Subjective Date/time seen: 02/08/22 12:18 Interval history: Awilda Salazar is an 81-year-old female with a history of dementia, hypertension, hypothyroidism, hyperlipidemia who is seen in follow-up for left hip fracture after an unwitnessed fall. 02/08 Pt states she feels nauseated has not had a bowel movement today, belly feels firm, hopeful dc after good bowel movement Review of Systems Review of Systems: All systems reviewed & are unremarkable except as noted in HPI and below Exam Const: General: cooperative and healthy appearing; No in distress Nutritional Appearance: overweight Orientation/consciousness: oriented to person HENMT: Head: normal to inspection Resp: Effort & Inspection: no respiratory distre
[2022-02-08] MEDS: MELATONIN 5 MG TABLET PO (21:23)
[2022-02-08] MEDS: SENNOSIDES 8.6 MG TABLET PO (21:23)
[2022-02-09] VITALS (11 sets, daily range): BP systolic 115–149; BP diastolic 59–80; PULSE 78–94; RESP 16–20; TEMP 36.1–37; O2SAT 94–99
[2022-02-09 05:45] LABS: Alanine Aminotransferase 8 U/L (6-35); Albumin Level 2.8 g/dL (3.5-5.1); Alkaline Phosphatase 80 U/L (38-126); Anion Gap 3 mmol/L (8-16); Aspartate Amino Transferase 18 U/L (14-36); Bilirubin,Total 0.5 mg/dL (0.2-1.3); Blood Urea Nitrogen 11 mg/dL (7-17); Calcium 8.1 mg/dL (8.4-10.2); Carbon Dioxide 33 mmol/L (22-30); Chloride 99 mmol/L (98-107); Estimated CRCL calculation 51 ml/min; Estimated Glomerular Filt Rate > 60; Glucose 112 mg/dL (65-110); Sodium 135 mmol/L (137-145)
[2022-02-09] MEDS: LEVOTHYROXINE SODIUM 50 MCG TABLET PO (05:56)
[2022-02-09] MEDS: MORPHINE SULFATE (*CRX) 2 MG/ML INJ 1 MG IV PUSH ×2 (06:04→11:27)
[2022-02-09] MEDS: CALCIUM CARBONATE (OSCAL) 500 MG TABLET PO ×2 (08:20→17:24)
[2022-02-09] MEDS: AMOXICILLIN/CLAVULANATE K 500-125 MG TAB 1 TABLET PO (08:20)
[2022-02-09] MEDS: POTASSIUM CHLORIDE 20 MEQ TABLET.ER PO (08:20)
[2022-02-09] MEDS: POLYSACCHARIDE IRON COMPLEX 150 MG CAPSULE PO (08:20)
[2022-02-09] MEDS: DONEPEZIL HCL 10 MG TABLET PO (08:21)
[2022-02-09] MEDS: SENNOSIDES 8.6 MG TABLET 17.2 MG PO (08:21)
[2022-02-09] MEDS: busPIRone HCL 5 MG TABLET PO ×2 (08:21→20:52)
[2022-02-09] MEDS: ENOXAPARIN 30 MG/0.3 ML SYRINGE SUB-Q (08:21)
[2022-02-09] MEDS: polyethylene glycoL 3350 17 GM POWD.PACK PO (08:21)
[2022-02-09] MEDS: busPIRone HCL 2.5 MG TABLET PO ×2 (08:21→20:52)
[2022-02-09] MEDS: PANTOPRAZOLE 40 MG TABLET PO (08:21)
[2022-02-09] MEDS: MIRTAZAPINE 7.5 MG TABLET PO (08:21)
[2022-02-09] MEDS: DOCUSATE SODIUM 100 MG CAPSULE PO ×2 (08:21→17:23)
[2022-02-09] MEDS: SERTRALINE HCL 50 MG TABLET PO (08:21)
[2022-02-09] MEDS: AZITHROMYCIN 250 MG TABLET 500 MG PO (08:21)
[2022-02-09] MEDS: ONDANSETRON INJ 4 MG/2 ML VIAL IV PUSH (08:21)
--- NOTE | 2022-02-09 09:28 | PM.IMPN ---
Progress Note: A&P Assessment and Plan (1) Unwitnessed fall: Code(s): R29.6 - Repeated falls Status: Acute Assessment and Plan: Patient was found on the ground at her nursing facility. Fall was unwitnessed. Patient cannot recall details due to dementia Sp ORIF on 02/[address] Bustos - 02/09/22: Pt. with continued fall precautions in place. She is of an advance fall risk secondary to her age, her mentation and now due to her recent injury. (2) Closed intertrochanteric fracture of left hip: Qualifiers: Encounter type: initial encounter Fracture alignment: displaced Qualified Code(s): S72.142A - Displaced intertrochanteric fracture of left femur, initial encounter for closed fracture Code(s): S72.142A - Displaced intertrochanteric fracture of left femur, initial encounter for closed fracture Status: Acute Assessment and Plan: Nondisplaced left IT fracture noted on imaging. Post op day 4 ORIF on 02/[address] Bustos. Weight-bearing status per Orthopedic surgery D/C to SNF/rehab Xray in 2 weeks. f/u in office in 4 weeks with xrays. Wound Care: Remove arleth at 2 weeks post op. Daily dressing changes until healed. - 02/09/22: Post op day #[address] Bustos. Will follow all above recommendations by Orthopedic service at discharge. Will Discharge to SNF when ready to go from a medical standpoint. However, given her witnessed choking today while eating, pt,. will be kept for another day so a swallow evaluation may be performed. Continue pain medications prn, PT and OT while inpatient and apply ice to the hip for comfort as needed. (3) UTI (urinary tract infection): Qualifiers: Urinary tract infection type: site unspecified Code(s): N39.0 - Urinary tract infection, site not specified Status: Acute Assessment and Plan: Pt on Augmentin Urine culture with growth of mixed daljit. - 02/09/22: Continue Augmentin for complete course in setting of being good yumiko of abx as pt., is also being treated for an abnormality on her CXR. Her urine culture grew out a mixed genital daljit only and are not indicative of an acute UTI. We will monitor her UOP, VS and labs. (4) Abnormal chest x-ray: Code(s): R93.89 - Abnormal findings on diagnostic imaging of other specified body structures Status: Acute Assessment and Plan: Increased interstitial opacities in the right lung may reflect progressive fibrosis though infection is not excluded. She was initiated on azithromycin at presentation which was discontinued after initial dose as there were no clinical signs/symptoms to suggest underlying infection She was requiring supplemental O2 due to episode of hypoxia following morphine however O2 sats were remaining stable therefore oxygen was weaned. Pt not able to tolerate weaning and became hypoxic at 86%. Will re-attempt to wean today. If not tolerated, home O2 eval will be performed. Repeat CXR given hypoxia was relatively unchanged. However as the patient is unable to indicate symptoms, will resume azithromycin in combination with oral augmentin for CAP coverage. QTc noted. Pt is on 1 liter of oxygen - 02/09/22: Pt. continues on Azithromycin and also on Augmentin for CAP coverage at this time. She remains on supplemental oxygen that she did not require prior to coming into the hospital. We will wean this as we are able to. This AM, it was witnessed that she was choking on her breakfast by this provider. Concern for aspiration is now present. Flagyl is added to this regimen, CXR stat is ordered, the Azithromycin is changed to IV and the Augmentin is changed to Zosyn. Pt. is NPO. (5) Hypothyroidism: Code(s): E03.9 - Hypothyroidism, unspecified Status: Acute Assessment and Plan: TSH is within normal limits Continue levothyroxine - 02/09/22: Continue Levothyroxine, holding until swallow eval. (6)
[2022-02-09] MEDS: metroNIDAZOLE 500 MG/ISO 100ML 500 MG/100 ML BAG 100 MG IVPB ×3 (11:56→23:43)
--- NOTE | 2022-02-09 12:05 | PCSTNOTE ---
Please refer to the Bedside Swallow Evaluation in the EMR. Please note, silent aspiration cannot be ruled out at bedside.
--- NOTE | 2022-02-09 18:16 | PC.NURSE ---
attempted to wean oxygen. Patient was sating 95% when 1LNC first removed. Kept HOB elevated. recheck in 10 minutes with pt on RA, sating 85%. Placed 1LNC and pt sating 95%.
[2022-02-09] MEDS: SENNOSIDES 8.6 MG TABLET PO (20:52)
[2022-02-09] MEDS: MELATONIN 5 MG TABLET PO (20:52)
[2022-02-10] VITALS (8 sets, daily range): BP systolic 106–149; BP diastolic 57–75; PULSE 77–94; RESP 16–20; TEMP 36.1–36.6; O2SAT 93–99; BMI 20.9
[2022-02-10] MEDS: LEVOTHYROXINE SODIUM 50 MCG TABLET PO (05:48)
[2022-02-10 06:18] LABS: Basophils Percent Auto 0.3 % (0.2-1.2); Eosinophils Absolute Auto 0.2 K/mm3 (0-0.3); Eosinophils Percent Auto 2.4 % (0-4.4); Hematocrit 28.3 % (37.0-47.0); Hemoglobin 9.1 g/dL (12.0-15.0); Immature Granulocyte Percent A 1.1 % (0-0.5); Lymphocytes Absolute Auto 1.19 K/mm3 (0.9-3.2); Lymphocytes Percent Auto 13.2 % (18.3-44.2); Mean Corpuscular HGB Conc 32.2 g/dl (32-36); Mean Corpuscular Volume 102.5 fl (80-100); Mean Platelet Volume 10.6 fl (7.4-10.4); Monocytes Absolute Auto 0.6 K/mm3 (0.1-0.6); Neutrophils Absolute Auto 6.9 K/mm3 (1.3-6.7); Platelet Count Result 238 k/mm3 (150-375); Red Blood Count 2.76 M/mm3 (4.2-5.4); Red Cell Distribution Width 12.4 % (11.5-14.5)
[2022-02-10] MEDS: metroNIDAZOLE 500 MG/ISO 100ML 500 MG/100 ML BAG 100 MG IVPB (06:23)
[2022-02-10 06:39] LABS: Alanine Aminotransferase 8 U/L (6-35); Albumin Level 2.8 g/dL (3.5-5.1); Alkaline Phosphatase 76 U/L (38-126); Anion Gap 3 mmol/L (8-16); Aspartate Amino Transferase 20 U/L (14-36); Bilirubin,Total 0.5 mg/dL (0.2-1.3); Blood Urea Nitrogen 11 mg/dL (7-17); Calcium 8.2 mg/dL (8.4-10.2); Carbon Dioxide 33 mmol/L (22-30); Chloride 98 mmol/L (98-107); Estimated CRCL calculation 51 ml/min; Estimated Glomerular Filt Rate > 60; Glucose 93 mg/dL (65-110); Magnesium 1.7 mg/dL (1.6-2.3); Potassium 3.7 mmol/L (3.4-5.0); Sodium 134 mmol/L (137-145)
[2022-02-10] MEDS: ENOXAPARIN 30 MG/0.3 ML SYRINGE SUB-Q (08:47)
[2022-02-10] MEDS: POLYSACCHARIDE IRON COMPLEX 150 MG CAPSULE PO (08:47)
[2022-02-10] MEDS: POTASSIUM CHLORIDE 20 MEQ TABLET.ER PO (08:47)
[2022-02-10] MEDS: CALCIUM CARBONATE (OSCAL) 500 MG TABLET PO ×2 (08:47→17:09)
[2022-02-10] MEDS: DONEPEZIL HCL 10 MG TABLET PO (08:48)
[2022-02-10] MEDS: SERTRALINE HCL 50 MG TABLET PO (08:48)
[2022-02-10] MEDS: DOCUSATE SODIUM 100 MG CAPSULE PO ×2 (08:48→17:09)
[2022-02-10] MEDS: MIRTAZAPINE 7.5 MG TABLET PO (08:48)
[2022-02-10] MEDS: PANTOPRAZOLE 40 MG TABLET PO (08:49)
[2022-02-10] MEDS: busPIRone HCL 2.5 MG TABLET PO ×2 (08:49→20:02)
[2022-02-10] MEDS: SENNOSIDES 8.6 MG TABLET 17.2 MG PO (08:49)
[2022-02-10] MEDS: busPIRone HCL 5 MG TABLET PO ×2 (08:49→20:02)
[2022-02-10] MEDS: polyethylene glycoL 3350 17 GM POWD.PACK PO (08:49)
--- NOTE | 2022-02-10 09:29 | PCRCNOTE ---
PATIENT PLANNED D/C IS TO A SNF. HOME O2 EVAL IS NOT NECESSARY, PATIENT RESIDE IN A [facility] SETTING IN WHICH O2 CAN BE TITRATED NEEDED BY NURSING STAFF
[2022-02-10] MEDS: MORPHINE SULFATE (*CRX) 2 MG/ML INJ 1 MG IV PUSH (09:55)
--- NOTE | 2022-02-10 10:45 | PM.IMPN ---
Progress Note: A&P Assessment and Plan (1) Unwitnessed fall: Code(s): R29.6 - Repeated falls Status: Acute Assessment and Plan: Patient was found on the ground at her nursing facility. Fall was unwitnessed. Patient cannot recall details due to dementia Sp ORIF on 02/[address] Bustos - 02/09/22: Pt. with continued fall precautions in place. She is of an advance fall risk secondary to her age, her mentation and now due to her recent injury. (2) Closed intertrochanteric fracture of left hip: Qualifiers: Encounter type: initial encounter Fracture alignment: displaced Qualified Code(s): S72.142A - Displaced intertrochanteric fracture of left femur, initial encounter for closed fracture Code(s): S72.142A - Displaced intertrochanteric fracture of left femur, initial encounter for closed fracture Status: Acute Assessment and Plan: Nondisplaced left IT fracture noted on imaging. Post op day 4 ORIF on 02/[address] Bustos. Weight-bearing status per Orthopedic surgery D/C to SNF/rehab Xray in 2 weeks. f/u in office in 4 weeks with xrays. Wound Care: Remove arleth at 2 weeks post op. Daily dressing changes until healed. Will Discharge to SNF when ready to go from a medical standpoint. However, given her witnessed choking from previous days the patient had a barium swallow which revealed recurrent laryngeal penetration. (3) UTI (urinary tract infection): Qualifiers: Urinary tract infection type: site unspecified Code(s): N39.0 - Urinary tract infection, site not specified Status: Acute Assessment and Plan: Pt on Augmentin Urine culture with growth of mixed daljit. - 02/09/22: Continue Augmentin for complete course in setting of being good yumiko of abx as pt., is also being treated for an abnormality on her CXR. Her urine culture grew out a mixed genital daljit only and are not indicative of an acute UTI. We will monitor her UOP, VS and labs. (4) Abnormal chest x-ray: Code(s): R93.89 - Abnormal findings on diagnostic imaging of other specified body structures Status: Acute Assessment and Plan: Increased interstitial opacities in the right lung may reflect progressive fibrosis though infection is not excluded. She was initiated on azithromycin at presentation which was discontinued after initial dose as there were no clinical signs/symptoms to suggest underlying infection She was requiring supplemental O2 due to episode of hypoxia following morphine however O2 sats were remaining stable therefore oxygen was weaned. Pt not able to tolerate weaning and became hypoxic at 86%. Will re-attempt to wean today. If not tolerated, home O2 eval will be performed. Repeat CXR given hypoxia was relatively unchanged. However as the patient is unable to indicate symptoms, will resume azithromycin in combination with oral augmentin for CAP coverage. QTc noted. Pt is on 1 liter of oxygen -patient is currently a level 5 diet assistance moist with thickened liquids. She will continue with Augmentin for possible aspiration pneumonia. Zosyn and Flagyl and azithromycin were discontinued. Patient currently does not have a leukocytosis. Monitor clinical course. Plan for DC later this week. (5) Hypothyroidism: Code(s): E03.9 - Hypothyroidism, unspecified Status: Acute Assessment and Plan: TSH is within normal limits Continue levothyroxine - 02/09/22: Continue Levothyroxine, holding until swallow eval. (6) Dementia: Qualifiers: Dementia type: unspecified type Code(s): F03.90 - Unspecified dementia without behavioral disturbance Status: Acute Assessment and Plan: At baseline Continue donepezil and memantine. - 02/09/22: Waxes and wanes. Today was A&Ox3 initially,. (7) Leukocytosis: Qualifiers: Leukocytosis type: unspecified Qualified Code(s): D
--- NOTE | 2022-02-10 15:45 | PM.PNORT ---
Progress Note: A&P Assessment and Plan (1) Closed intertrochanteric fracture of left hip: Qualifiers: Encounter type: initial encounter Fracture alignment: displaced Qualified Code(s): S72.142A - Displaced intertrochanteric fracture of left femur, initial encounter for closed fracture Code(s): S72.142A - Displaced intertrochanteric fracture of left femur, initial encounter for closed fracture Status: Acute Assessment and Plan: POD 6: ORIF left hip intertrochanteric fracture with short cephalomedullary nail. Resting comfortably at the time of my visit. States she is having no pain. Making good progress. She was having diarrhea. I recommend Mepilex dressing to avoid contamination. May leave on for up to 7 days if dressing is intact has no drainage and is not soiled. Patient typically lives in a memory care. She is non ambulatory. Plan to discharge to SNF once patient is cleared medically. Ortho instructions: D/C to SNF/rehab Xray in 2 weeks. f/u in office in 4 weeks with xrays. Wound Care: Remove arleth at 2 weeks post op. DVT prophylaxis: continue Lovenox for 30 days total Pain medication: Tylenol. Subjective Subjective Date/Time Seen: 02/10/22 15:45 Patient resting comfortably at the time of my visit. States she has no pain. Patient had diarrhea. Review of Systems Review of Systems: ROS unobtainable: Yes unobtainable due to medical condition Exam Narrative: Thin 81 y/o elderly female. Resting comfortably in bed. Wearing compression socks bilaterally. Dressing dry and intact with no drainage. Moderate swelling. No edema. No ecchymosis. No erythema. No hematoma. Range of motion limited due to pain. Calf nontender. Thigh nontender. No varicosities. Distal pulses palpable. Wiggles toes. Objective Data Vital Signs Vital Signs: Vital Signs - 24 hr 02/09/22 16:22 02/09/22 17:42 02/09/22 17:55 Temperature Pulse Rate 78 88 94 Respiratory Rate Blood Pressure Pulse Oximetry 96 96 98 02/09/22 20:00 02/09/22 21:00 02/10/22 01:00 Temperature 97.0 F L 97.2 F L Pulse Rate 83 77 Respiratory Rate 18 20 Blood Pressure 124/62 113/57 L Pulse Oximetry 97 94 99 02/10/22 05:30 02/10/22 08:49 02/10/22 09:38 Temperature 97.7 F 97.9 F Pulse Rate 82 83 Respiratory Rate 20 18 18 Blood Pressure 149/75 H 106/64 Pulse Oximetry 98 95 97 02/10/22 14:06 Temperature 97.2 F L Pulse Rate 86 Respiratory Rate 16 Blood Pressure 123/68 Pulse Oximetry 94 Intake/Output Intake/Output: Intake & Output 02/07/22 02/08/22 02/09/22 02/10/22 23:59 23:59 23:59 23:59 Intake Total 300 420 800 770 Balance 300 420 800 770 Meds/Results Medications: Active Medications Generic Name Dose Route Start Last Admin Trade Name Freq PRN Reason Stop Dose Admin Amoxicillin/Clavulanate Potassium 1 tablet 02/10/22 21:00 Amoxicillin/Clavulanate K 875-125 Mg Tab PO 02/16/22 06:00 Q12HR TOREY Buspirone HCl 5 mg 02/02/22 23:05 02/10/22 08:49 Buspirone Hcl 5 Mg Tablet PO 5 mg Q12HR TOREY Administration Buspirone HCl 2.5 mg 02/02/22 23:05 02/10/22 08:49 Buspirone Hcl 2.5 Mg Tablet PO 2.5 mg Q12HR TOREY Administration Calcium Carbonate 500 mg 02/07/22 17:00 02/10/22 08:47 Calcium Carbonate (Oscal) 500 Mg Tablet PO 500 mg BIDWM TOREY Administration Docusate Sodium 100 mg 02/03/22 09:00 02/10/22 08:48 Docusate Sodium 100 Mg Capsule PO 100 mg BID TOREY Administration Donepezil HCl 10 mg 02/03/22 09:00 02/10/22 08:48 Donepezil Hcl 10 Mg Tablet PO 10 mg DAILY TOREY Administration Enoxaparin Sodium 30 mg 02/05/22 09:00 02/10/22 08:47 Enoxaparin 30 Mg/0.3 Ml Syringe SUB-Q 30 mg DAILY TOREY Administration Fentanyl Citrate 25 mcg 02/04/22 13:48 Fentanyl Citrate Inj (*Crx) 100 Mcg/2 Ml Vial IV PUSH Q2M PRN Pain Levothyroxine Sodium 50 mcg 02/03/22 06:30 02/10/22 05:48 Levothyroxine Sodium 50 Mcg
[2022-02-10] MEDS: SENNOSIDES 8.6 MG TABLET PO (20:02)
[2022-02-10] MEDS: AMOXICILLIN/CLAVULANATE K 875-125 MG TAB 1 TABLET PO (20:02)
[2022-02-10] MEDS: MELATONIN 5 MG TABLET PO (20:02)
[2022-02-11] VITALS (9 sets, daily range): BP systolic 113–151; BP diastolic 67–86; PULSE 81–108; RESP 14–18; TEMP 35.8–37.1; O2SAT 91–98
[2022-02-11] MEDS: LEVOTHYROXINE SODIUM 50 MCG TABLET PO (06:19)
[2022-02-11 07:54] LABS: Basophils Absolute Auto 0.1 K/mm3 (0.0-0.1); Basophils Percent Auto 0.5 % (0.2-1.2); Eosinophils Absolute Auto 0.2 K/mm3 (0-0.3); Eosinophils Percent Auto 2.3 % (0-4.4); Hematocrit 30.3 % (37.0-47.0); Hemoglobin 9.6 g/dL (12.0-15.0); Immature Granulocyte Absolute 0.07 K/mm3 (0.00-0.031); Immature Granulocyte Percent A 0.8 % (0-0.5); Lymphocytes Absolute Auto 1.07 K/mm3 (0.9-3.2); Lymphocytes Percent Auto 11.7 % (18.3-44.2); Mean Corpuscular HGB Conc 31.7 g/dl (32-36); Mean Corpuscular Hemoglobin 32.7 pg (26-34); Mean Corpuscular Volume 103.1 fl (80-100); Monocytes Absolute Auto 0.6 K/mm3 (0.1-0.6); Monocytes Percent Auto 6.4 % (2.6-8.5); Neutrophils Absolute Auto 7.2 K/mm3 (1.3-6.7); Neutrophils Percent Auto 78.3 % (45.5-73.1); Platelet Count Result 264 k/mm3 (150-375); Red Blood Count 2.94 M/mm3 (4.2-5.4); Red Cell Distribution Width 12.6 % (11.5-14.5); White Blood Count 9.1 K/mm3 (4.5-10.0)
[2022-02-11 08:03] LABS: Alanine Aminotransferase 7 U/L (6-35); Albumin Level 2.7 g/dL (3.5-5.1); Alkaline Phosphatase 77 U/L (38-126); Anion Gap 1 mmol/L (8-16); Aspartate Amino Transferase 24 U/L (14-36); Bilirubin,Total 0.4 mg/dL (0.2-1.3); Blood Urea Nitrogen 8 mg/dL (7-17); Calcium 8.2 mg/dL (8.4-10.2); Carbon Dioxide 36 mmol/L (22-30); Chloride 101 mmol/L (98-107); Estimated CRCL calculation 51 ml/min; Estimated Glomerular Filt Rate > 60; Glucose 99 mg/dL (65-110); Potassium 3.8 mmol/L (3.4-5.0); Sodium 138 mmol/L (137-145)
[2022-02-11] MEDS: ENOXAPARIN 30 MG/0.3 ML SYRINGE SUB-Q (08:33)
[2022-02-11] MEDS: AMOXICILLIN/CLAVULANATE K 875-125 MG TAB 1 TABLET PO ×2 (08:34→20:46)
[2022-02-11] MEDS: MIRTAZAPINE 7.5 MG TABLET PO (08:35)
[2022-02-11] MEDS: DOCUSATE SODIUM 100 MG CAPSULE PO (08:35)
[2022-02-11] MEDS: CALCIUM CARBONATE (OSCAL) 500 MG TABLET PO ×2 (08:35→18:29)
[2022-02-11] MEDS: SERTRALINE HCL 50 MG TABLET PO (08:35)
[2022-02-11] MEDS: SENNOSIDES 8.6 MG TABLET 17.2 MG PO (08:35)
[2022-02-11] MEDS: POTASSIUM CHLORIDE 20 MEQ TABLET.ER PO (08:35)
[2022-02-11] MEDS: busPIRone HCL 2.5 MG TABLET PO ×2 (08:36→20:47)
[2022-02-11] MEDS: PANTOPRAZOLE 40 MG TABLET PO (08:36)
[2022-02-11] MEDS: POLYSACCHARIDE IRON COMPLEX 150 MG CAPSULE PO (08:36)
[2022-02-11] MEDS: DONEPEZIL HCL 10 MG TABLET PO (08:37)
[2022-02-11] MEDS: busPIRone HCL 5 MG TABLET PO ×2 (08:37→20:46)
[2022-02-11] MEDS: polyethylene glycoL 3350 17 GM POWD.PACK PO (08:38)
--- NOTE | 2022-02-11 10:11 | PM.IMPN ---
Progress Note: A&P Assessment and Plan (1) Unwitnessed fall: Code(s): R29.6 - Repeated falls Status: Acute Assessment and Plan: Patient was found on the ground at her nursing facility.? Fall was unwitnessed.? Patient cannot recall details due to dementia Sp ORIF on 02/[address] Bustos- 02/09/22: Pt. with continued fall precautions in place. She is of an advance fall risk secondary to her age, her mentation and now due to her recent injury. (2) Closed intertrochanteric fracture of left hip: Qualifiers: Encounter type: initial encounter Fracture alignment: displaced Qualified Code(s): S72.142A - Displaced intertrochanteric fracture of left femur, initial encounter for closed fracture Code(s): S72.142A - Displaced intertrochanteric fracture of left femur, initial encounter for closed fracture Status: Acute Assessment and Plan: Nondisplaced left IT fracture noted on imaging. Post op day 4 ORIF on 02/[address] Bustos. Weight-bearing status per Orthopedic surgery D/C to SNF/rehab Xray in 2 weeks. f/u in office in 4 weeks with xrays. Wound Care: Remove arleth at 2 weeks post op. Daily dressing changes until healed.?Will Discharge to SNF when ready to go from a medical standpoint. However, given her witnessed choking from previous days the patient had a barium swallow which revealed recurrent laryngeal penetration. (3) UTI (urinary tract infection): Qualifiers: Urinary tract infection type: site unspecified Code(s): N39.0 - Urinary tract infection, site not specified Status: Acute Assessment and Plan: ?? Pt on Augmentin Urine culture with growth of mixed daljit.- 02/09/22: Continue Augmentin for complete course in setting of being good yumiko of abx as pt., is also being treated for an abnormality on her CXR. Her urine culture grew out a mixed genital daljit only and are not indicative of an acute UTI. We will monitor her UOP, VS and labs. (4) Abnormal chest x-ray: Code(s): R93.89 - Abnormal findings on diagnostic imaging of other specified body structures Status: Acute Assessment and Plan: Increased interstitial opacities in the right lung may reflect progressive fibrosis though infection is not excluded. She was initiated on azithromycin at presentation which was discontinued after initial dose as there were no clinical signs/symptoms to suggest underlying infection She was requiring supplemental O2 due to episode of hypoxia following morphine however O2 sats were remaining stable therefore oxygen was weaned. Pt not able to tolerate weaning and became hypoxic at 86%. Will re-attempt to wean today. If not tolerated, home O2 eval will be performed. Repeat CXR given hypoxia was relatively unchanged. However as the patient is unable to indicate symptoms, will resume azithromycin in combination with oral augmentin for CAP coverage. QTc noted. Pt is on 1 liter of oxygen-patient is currently a level 5 diet assistance moist with thickened liquids.? She will continue with Augmentin for possible aspiration pneumonia.? Zosyn and Flagyl and azithromycin were discontinued.? Patient currently does not have a leukocytosis.? Monitor clinical course.? Plan for DC later this week. (5) Hypothyroidism: Code(s): E03.9 - Hypothyroidism, unspecified Status: Acute Assessment and Plan: TSH is within normal limits Continue levothyroxine- 02/09/22: Continue Levothyroxine, holding until swallow eval. (6) Dementia: Qualifiers: Dementia type: unspecified type Code(s): F03.90 - Unspecified dementia without behavioral disturbance Status: Acute Assessment and Plan: ?Continue donepezil and memantine.- 02/09/22: Waxes and wanes. Today was A&Ox3 initially,. (7) Leukocytosis: Qualifiers: Leukocytosis type: unspecified Qualified Code(s): D72.829 - Elevated white blood cell count, unspecified Code(s):
--- NOTE | 2022-02-11 10:21 | PM.PNORT ---
Progress Note: A&P Assessment and Plan (1) Closed intertrochanteric fracture of left hip: Qualifiers: Encounter type: initial encounter Fracture alignment: displaced Qualified Code(s): S72.142A - Displaced intertrochanteric fracture of left femur, initial encounter for closed fracture Code(s): S72.142A - Displaced intertrochanteric fracture of left femur, initial encounter for closed fracture Status: Acute Assessment and Plan: Patient appears comfortable. She is responsive. She had some drainage and several dressings were applied. Examination She lays on her right side. Thigh is soft. Dressing is intact and dry. No drainage. She wiggles her toes. Minimal edema. Calf nontender. Impression Satisfactory progress status post intramedullary nailing of the left hip. Continue with the Mepilex until the arleth can be removed. Citra will need to be removed 2 weeks postoperatively. Subjective Subjective Date/Time Seen: 02/11/22 10:21 Objective Data Vital Signs Vital Signs: Vital Signs - 24 hr 02/10/22 14:06 02/10/22 18:00 02/10/22 20:00 Temperature 36.2 C L 36.4 C L 36.1 C L Pulse Rate 86 89 88 Respiratory Rate 16 18 18 Blood Pressure 123/68 124/62 142/68 H Pulse Oximetry 94 95 95 Oxygen Delivery Oxygen Flow Rate 02/10/22 20:23 02/11/22 00:00 02/11/22 04:00 Temperature 36.0 C L 35.8 C L Pulse Rate 94 90 81 Respiratory Rate 18 16 Blood Pressure 137/74 151/77 H Pulse Oximetry 93 97 98 Oxygen Delivery Nasal Cannula Oxygen Flow Rate 1 02/11/22 09:05 Temperature Pulse Rate Respiratory Rate Blood Pressure Pulse Oximetry 96 Oxygen Delivery Nasal Cannula Oxygen Flow Rate 1 Intake/Output Intake/Output: Intake & Output 02/08/22 02/09/22 02/10/22 02/11/22 23:59 23:59 23:59 23:59 Intake Total 420 800 770 60 Balance 420 800 770 60 Meds/Results Medications: Active Medications Generic Name Dose Route Start Last Admin Trade Name Freq PRN Reason Stop Dose Admin Amoxicillin/Clavulanate Potassium 1 tablet 02/10/22 21:00 02/11/22 08:34 Amoxicillin/Clavulanate K 875-125 Mg Tab PO 02/16/22 06:00 1 tablet Q12HR TOREY Administration Buspirone HCl 5 mg 02/02/22 23:05 02/11/22 08:37 Buspirone Hcl 5 Mg Tablet PO 5 mg Q12HR TOREY Administration Buspirone HCl 2.5 mg 02/02/22 23:05 02/11/22 08:36 Buspirone Hcl 2.5 Mg Tablet PO 2.5 mg Q12HR TOREY Administration Calcium Carbonate 500 mg 02/07/22 17:00 02/11/22 08:35 Calcium Carbonate (Oscal) 500 Mg Tablet PO 500 mg BIDWM TOREY Administration Docusate Sodium 100 mg 02/03/22 09:00 02/11/22 08:35 Docusate Sodium 100 Mg Capsule PO 100 mg BID TOREY Administration Donepezil HCl 10 mg 02/03/22 09:00 02/11/22 08:37 Donepezil Hcl 10 Mg Tablet PO 10 mg DAILY TOREY Administration Enoxaparin Sodium 30 mg 02/05/22 09:00 02/11/22 08:33 Enoxaparin 30 Mg/0.3 Ml Syringe SUB-Q 30 mg DAILY TOREY Administration Fentanyl Citrate 25 mcg 02/04/22 13:48 Fentanyl Citrate Inj (*Crx) 100 Mcg/2 Ml Vial IV PUSH Q2M PRN Pain Levothyroxine Sodium 50 mcg 02/03/22 06:30 02/11/22 06:19 Levothyroxine Sodium 50 Mcg Tablet PO 50 mcg DAILY@0630 TROEY Administration Melatonin 5 mg 02/03/22 21:00 02/10/22 20:02 Melatonin 5 Mg Tablet PO 5 mg HS TOREY Administration Mirtazapine 7.5 mg 02/03/22 09:00 02/11/22 08:35 Mirtazapine 7.5 Mg Tablet PO 7.5 mg DAILY TOREY Administration Morphine Sulfate 1 mg 02/02/22 22:11 02/10/22 09:55 Morphine Sulfate (*Crx) 2 Mg/Ml Inj IV PUSH 1 mg Q4H PRN Administration Pain Rated 7-10 Naloxone HCl 0.1 mg 02/04/22 18:00 Naloxone Hcl 0.4 Mg/Ml Vial IV PUSH Q2M PRN Opiate Reversal Ondansetron HCl 4 mg 02/02/22 17:39 02/09/22 08:21 Ondansetron Inj 4 Mg/2 Ml Vial IV PUSH 4 mg Q4H PRN Administration Nausea Pantoprazole Sodium 40 mg 02/03/22 09:00 02/11
[2022-02-11] MEDS: oxyCODONE HCL (*CRX) 5 MG TAB IR PO (11:49)
[2022-02-11] MEDS: SENNOSIDES 8.6 MG TABLET PO (20:45)
[2022-02-11] MEDS: MELATONIN 5 MG TABLET PO (20:45)
[2022-02-12 00:41] VITALS: BP 130/81; PULSE 91; RESP 18; TEMP 36.4; O2SAT 92
[2022-02-12 05:07] VITALS: BP 131/68; PULSE 88; RESP 18; TEMP 36; O2SAT 90
[2022-02-12 05:40] LABS: Basophils Absolute Auto 0.1 K/mm3 (0.0-0.1); Basophils Percent Auto 0.6 % (0.2-1.2); Eosinophils Absolute Auto 0.2 K/mm3 (0-0.3); Eosinophils Percent Auto 2.1 % (0-4.4); Hematocrit 34.3 % (37.0-47.0); Hemoglobin 10.8 g/dL (12.0-15.0); Immature Granulocyte Absolute 0.09 K/mm3 (0.00-0.031); Lymphocytes Absolute Auto 1.38 K/mm3 (0.9-3.2); Lymphocytes Percent Auto 15.4 % (18.3-44.2); Mean Corpuscular HGB Conc 31.5 g/dl (32-36); Mean Corpuscular Hemoglobin 32.4 pg (26-34); Mean Platelet Volume 10.4 fl (7.4-10.4); Monocytes Absolute Auto 0.5 K/mm3 (0.1-0.6); Monocytes Percent Auto 5.5 % (2.6-8.5); Neutrophils Absolute Auto 6.7 K/mm3 (1.3-6.7); Neutrophils Percent Auto 75.4 % (45.5-73.1); Platelet Count Result 351 k/mm3 (150-375); Red Blood Count 3.33 M/mm3 (4.2-5.4); Red Cell Distribution Width 12.8 % (11.5-14.5); White Blood Count 8.9 K/mm3 (4.5-10.0)
[2022-02-12 05:47] LABS: Alanine Aminotransferase 11 U/L (6-35); Albumin Level 3.1 g/dL (3.5-5.1); Alkaline Phosphatase 94 U/L (38-126); Anion Gap 4 mmol/L (8-16); Aspartate Amino Transferase 27 U/L (14-36); Bilirubin,Total 0.5 mg/dL (0.2-1.3); Blood Urea Nitrogen 9 mg/dL (7-17); Calcium 8.6 mg/dL (8.4-10.2); Carbon Dioxide 33 mmol/L (22-30); Chloride 101 mmol/L (98-107); Estimated CRCL calculation 51 ml/min; Estimated Glomerular Filt Rate > 60; Glucose 101 mg/dL (65-110); Magnesium 1.7 mg/dL (1.6-2.3); Potassium 3.5 mmol/L (3.4-5.0); Sodium 138 mmol/L (137-145)
[2022-02-12] MEDS: LEVOTHYROXINE SODIUM 50 MCG TABLET PO (06:14)
[2022-02-12] MEDS: ENOXAPARIN 30 MG/0.3 ML SYRINGE SUB-Q (07:55)
[2022-02-12] MEDS: MIRTAZAPINE 7.5 MG TABLET PO (07:56)
[2022-02-12] MEDS: DOCUSATE SODIUM 100 MG CAPSULE PO (07:56)
[2022-02-12] MEDS: AMOXICILLIN/CLAVULANATE K 875-125 MG TAB 1 TABLET PO (07:56)
[2022-02-12] MEDS: CALCIUM CARBONATE (OSCAL) 500 MG TABLET PO (07:56)
[2022-02-12] MEDS: POTASSIUM CHLORIDE 20 MEQ TABLET.ER PO (07:56)
[2022-02-12] MEDS: busPIRone HCL 5 MG TABLET PO (07:57)
[2022-02-12] MEDS: DONEPEZIL HCL 10 MG TABLET PO (07:57)
[2022-02-12] MEDS: SERTRALINE HCL 50 MG TABLET PO (07:57)
[2022-02-12] MEDS: busPIRone HCL 2.5 MG TABLET PO (07:57)
[2022-02-12] MEDS: POLYSACCHARIDE IRON COMPLEX 150 MG CAPSULE PO (07:57)
[2022-02-12] MEDS: PANTOPRAZOLE 40 MG TABLET PO (07:57)
[2022-02-12] MEDS: SENNOSIDES 8.6 MG TABLET 17.2 MG PO (07:58)
[2022-02-12] MEDS: oxyCODONE HCL (*CRX) 5 MG TAB IR PO (07:58)
--- NOTE | 2022-02-12 09:58 | PCOTNOTE ---
Attempted to see patient for OT this AM. Patient sleeping upon entry. Patient's upper arm rubbed, and patient awoke. Patient asked to participate in therapy, starting with washing her face. Patient closed her eyes and shook her head no. Patient encouraged to perform task to feel better. Patient continued to shake head, no. Will continue OT plan of care.
[2022-02-12 10:12] VITALS: BP 133/67; PULSE 86; RESP 14; TEMP 36.6; O2SAT 93
[2022-02-12 10:46] LABS: EDCOVIDSCREEN Negative (Negative)
--- NOTE | 2022-02-12 10:50 | P.DS_ITS ---
DS: Admitting Diagnosis Discharge Date 02/12/2022 <Letitia GarciaSTIVEN quirozC - Last Filed: 02/12/22 14:42> Admitting Diagnosis Left hip fracture <Letitia GarciaSTIVEN quirozC - Last Filed: 02/12/22 14:42> DS: Discharge Diagnosis Discharge Diagnosis (1) Unwitnessed fall: Code(s): R29.6 - Repeated falls <Letitia GarciaSTIVEN quirozC - Last Filed: 02/12/22 14:42> Status: Acute <Letitia GarciaROBINSON quiroz-C - Last Filed: 02/12/22 14:42> Assessment and Plan: Patient was found on the ground at her nursing facility.? Fall was unwi tnessed.? 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 With double x-ray showed no fracture. No further complaints of jaw pain. * Fall precautions the bed. She is at risk for falls given age, dementia, and recent injury <Letitia BookerSonido JoseSTIVEN quirozC - Last Filed: 02/12/22 14:42> (2) Closed intertrochanteric fracture of left hip: Qualifiers: Encounter type: initial encounter Fracture alignment: displaced Qualified Code(s): S72.142A - Displaced intertrochanteric fracture of left femur, initial encounter for closed fracture <Letitia GarciaMANUELA quiroz - Last Filed: 02/12/22 14:42> Code(s): S72.142A - Displaced intertrochanteric fracture of left femur, initial encounter for closed fracture <Letitia GarciaSTIVEN quirozC - Last Filed: 02/12/22 14:42> Status: Acute <Letitia GarciaSTIVEN quirozC - Last Filed: 02/12/22 14:42> Assessment and Plan: Nondisplaced left IT fracture noted on imaging. * She was seen in consultation by Orthopedic surgery * Underwent ORIF on 02/[address] Bustos.? Tolerated procedure well * Participated PT/OT during admission had will continue therapy at SNF * Continue Lovenox 30 mg injections daily for 30 days per Orthopedic surgery recommendations. Repeat CBC in 1 week * She will need outpatient x-ray at nursing facility in 2 weeks then follow-up in the office in 4 weeks. * Analgesics available as needed. Limit narcotics. <Letitia BookerSonido Rocha PA-C - Last Filed: 02/12/22 14:42> (3) UTI (urinary tract infection): Qualifiers: Urinary tract infection type: site unspecified <Letitia Rocha PA-C - Last Filed: 02/12/22 14:42> Code(s): N39.0 - Urinary tract infection, site not specified <Letitia BookerSonido JoseSTIVEN quirozC - Last Filed: 02/12/22 14:42> Status: Acute <Letitia BookerSonido JoseMANUELA quiroz - Last Filed: 02/12/22 14:42> Assessment and Plan: Dialysis on presentation was grossly unremarkable inpatient leukocytosis. Given her dementia, she was unable to indicate urinary symptoms * She was initiated on IV Rocephin * Urine culture showed growth of mixed daljit not indicative of acute UTI * Given patient's clinical presentation his ability to articulate symptoms, treatment was continued. She was transitioned to p.o. Augmentin. <Letitia BookerSonido Rocha PA-C - Last Filed: 02/12/22 14:42> (4) Abnormal chest x-ray: Code(s): R93.89 - Abnormal findings on diagnostic imaging of other specified body structures <Letitia Rocha PA-C - Last Filed: 02/12/22 14:42> Status: Acute <Letitia JSonido Rocha PA-C - Last Filed: 02/12/22 14:42> Assessment and Plan: CXR showed increased interstitial opacities in the right lung may reflect progressive fibrosis though infection is not excluded. * She did not have clinical signs/symptoms to suggest respiratory loose, however she did require supplemental oxygen to episode of
--- NOTE | 2022-02-12 10:50 | PM.DS ---
DS: Admitting Diagnosis Discharge Date 02/12/2022 <Letitia Garciagabriella ROBINSON-C - Last Filed: 02/12/22 14:42> Admitting Diagnosis Left hip fracture <Letitia GarciaSTIVEN quirozC - Last Filed: 02/12/22 14:42> DS: Discharge Diagnosis Discharge Diagnosis (1) Unwitnessed fall: Code(s): R29.6 - Repeated falls <Letitia GarciaSTIVEN quirozC - Last Filed: 02/12/22 14:42> Status: Acute <Letitia Rocha ROBINSON-C - Last Filed: 02/12/22 14:42> Assessment and Plan: Patient was found on the ground at her nursing facility.? Fall was unwitnessed.? 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 With double x-ray showed no fracture. No further complaints of jaw pain. Fall precautions the bed. She is at risk for falls given age, dementia, and recent injury <Letitia BookerSonido JoseROBINSON quiroz-C - Last Filed: 02/12/22 14:42> (2) Closed intertrochanteric fracture of left hip: Qualifiers: Encounter type: initial encounter Fracture alignment: displaced Qualified Code(s): S72.142A - Displaced intertrochanteric fracture of left femur, initial encounter for closed fracture <Letitia GarciaROBINSON quiroz-C - Last Filed: 02/12/22 14:42> Code(s): S72.142A - Displaced intertrochanteric fracture of left femur, initial encounter for closed fracture <Letitia Garciagabriella ROBINSON-C - Last Filed: 02/12/22 14:42> Status: Acute <Letitia GarciaROBINSON quiroz-C - Last Filed: 02/12/22 14:42> Assessment and Plan: Nondisplaced left IT fracture noted on imaging. She was seen in consultation by Orthopedic surgery Underwent ORIF on 02/[address] Bustos.? Tolerated procedure well Participated PT/OT during admission had will continue therapy at SNF Continue Lovenox 30 mg injections daily for 30 days per Orthopedic surgery recommendations. Repeat CBC in 1 week She will need outpatient x-ray at nursing facility in 2 weeks then follow-up in the office in 4 weeks. Analgesics available as needed. Limit narcotics. <Letitia BookerSonido Rocha PA-C - Last Filed: 02/12/22 14:42> (3) UTI (urinary tract infection): Qualifiers: Urinary tract infection type: site unspecified <Letitia JSonido Rocha MANUELA - Last Filed: 02/12/22 14:42> Code(s): N39.0 - Urinary tract infection, site not specified <Letitia Garciagabriella MANUELA - Last Filed: 02/12/22 14:42> Status: Acute <Letitia JSonido JoseROBINSON quirozMonico - Last Filed: 02/12/22 14:42> Assessment and Plan: Dialysis on presentation was grossly unremarkable inpatient leukocytosis. Given her dementia, she was unable to indicate urinary symptoms She was initiated on IV Rocephin Urine culture showed growth of mixed daljit not indicative of acute UTI Given patient's clinical presentation his ability to articulate symptoms, treatment was continued. She was transitioned to p.o. Augmentin. <Letitia BookerSonido Rocha MANUELA - Last Filed: 02/12/22 14:42> (4) Abnormal chest x-ray: Code(s): R93.89 - Abnormal findings on diagnostic imaging of other specified body structures <Letitia JSonido Rocha MANUELA - Last Filed: 02/12/22 14:42> Status: Acute <Letitia JSonido Rocha MANUELA - Last Filed: 02/12/22 14:42> Assessment and Plan: CXR showed increased interstitial opacities in the right lung may reflect progressive fibrosis though infection is not excluded. She did not have clinical signs/symptoms to suggest respiratory loose, however she did require supplemental oxygen to episode of hypoxia following morphine. Had difficulty weaning oxygen therefore repeat CXR completed Proceeded with treatment for CAP with Ceftriaxone and Azithromycin Transitioned to Zosyn and Flagyl for aspiration coverage following witnessed episode of aspiration IV antibiotics narrowed to Augmentin which she will continue to complete
--- NOTE | 2022-02-12 12:24 | PM.PNORT ---
Progress Note: A&P Assessment and Plan (1) Closed intertrochanteric fracture of left hip: Qualifiers: Encounter type: initial encounter Fracture alignment: displaced Qualified Code(s): S72.142A - Displaced intertrochanteric fracture of left femur, initial encounter for closed fracture Code(s): S72.142A - Displaced intertrochanteric fracture of left femur, initial encounter for closed fracture Status: Acute Plan POD 8: ORIF left hip intertrochanteric fracture with short cephalomedullary nail. Resting comfortably at the time of my visit. Pain in the hip. Spoke to hospitalist. Plan for discharge today. Patient typically lives in a [facility]. She is non ambulatory. WBAT. Plan to discharge to SNF once patient is cleared medically. Ortho instructions: D/C to SNF/rehab Xray in 2 weeks. f/u in office in 4 weeks with xrays. Wound Care: Remove arleth at 2 weeks post op. Daily dressing changes. DVT prophylaxis: continue Lovenox for 30 days total Pain medication: Tylenol. Subjective Subjective Date/Time Seen: 02/12/22 12:24 Patient resting comfortably. Complained of pain in her hip. Review of Systems Review of Systems: ROS unobtainable: Yes unobtainable due to mental status Exam Narrative: Thin 81 y/o elderly female. Resting comfortably in bed. Wearing compression socks bilaterally. Dressing dry and intact with no drainage. Moderate swelling. No edema. No ecchymosis. No erythema. No hematoma. Range of motion limited due to pain. Calf nontender. Thigh soft and nontender. No varicosities. Distal pulses palpable. Wiggles toes. Objective Data Vital Signs Vital Signs: Vital Signs - 24 hr 02/11/22 14:48 02/11/22 18:12 02/11/22 20:13 Temperature 98.8 F 98.2 F 97.8 F Pulse Rate 102 H 108 H 101 H Respiratory Rate 14 14 16 Blood Pressure 113/67 137/71 137/86 Pulse Oximetry 91 92 96 Oxygen Delivery Oxygen Flow Rate 02/11/22 20:00 02/12/22 00:41 02/11/22 21:55 Temperature 97.5 F L Pulse Rate 91 Respiratory Rate 18 Blood Pressure 130/81 Pulse Oximetry 92 96 Oxygen Delivery Room Air Nasal Cannula Oxygen Flow Rate 1 02/12/22 05:07 02/12/22 08:00 02/12/22 10:12 Temperature 96.8 F L 97.9 F Pulse Rate 88 86 Respiratory Rate 18 14 Blood Pressure 131/68 133/67 Pulse Oximetry 90 93 Oxygen Delivery Room Air Oxygen Flow Rate Intake/Output Intake/Output: Intake & Output 02/09/22 02/10/22 02/11/22 02/12/22 23:59 23:59 23:59 23:59 Intake Total 800 770 230 60 Balance 800 770 230 60 Meds/Results Medications: Active Medications Generic Name Dose Route Start Last Admin Trade Name Freq PRN Reason Stop Dose Admin Acetaminophen 1,000 mg 02/11/22 10:52 Acetaminophen 500 Mg Tablet PO Q6H PRN Mild Pain (1-3) or Fever Amoxicillin/Clavulanate Potassium 1 tablet 02/10/22 21:00 02/12/22 07:56 Amoxicillin/Clavulanate K 875-125 Mg Tab PO 02/16/22 06:00 1 tablet Q12HR TOREY Administration Buspirone HCl 5 mg 02/02/22 23:05 02/12/22 07:57 Buspirone Hcl 5 Mg Tablet PO 5 mg Q12HR TOREY Administration Buspirone HCl 2.5 mg 02/02/22 23:05 02/12/22 07:57 Buspirone Hcl 2.5 Mg Tablet PO 2.5 mg Q12HR TOREY Administration Calcium Carbonate 500 mg 02/07/22 17:00 02/12/22 07:56 Calcium Carbonate (Oscal) 500 Mg Tablet PO 500 mg BIDWM TOREY Administration Docusate Sodium 100 mg 02/03/22 09:00 02/12/22 07:56 Docusate Sodium 100 Mg Capsule PO 100 mg BID TOREY Administration Donepezil HCl 10 mg 02/03/22 09:00 02/12/22 07:57 Donepezil Hcl 10 Mg Tablet PO 10 mg DAILY TOREY Administration Enoxaparin Sodium 30 mg 02/05/22 09:00 02/12/22 07:55 Enoxaparin 30 Mg/0.3 Ml Syringe SUB-Q 30 mg DAILY TOREY Administration Fentanyl Citrate 25 mcg 02/04/22 13:48 Fentanyl Citrate Inj (*Crx) 100 Mcg/2 Ml Vial IV PUSH Q2M PRN Pain Levothyroxine Sodium 50 mcg 02/03/22 06:30 02/12/22 0
== END 2022-02-12 14:19 | DRG 480 ==
LOC: ANHED 18:10 → ANH2MED 18:28
PROVIDERS: Family Medicine; Nurse Practitioner Adult Health; Nurse Practitioner Family; Orthopaedic Surgery; Physician Assistant; Admitting Provider Family Medicine; Emergency Provider Emergency Medicine; PCP Family Medicine; Visit Provider Physician Assistant
PROC: 0QS736Z Reposition Left Upper Femur with Intramedullary Internal Fixation Device, Percutaneous Approach (ICD-10-PCS; CPT 27245; principal; 2022-02-04 15:30)
DX: S72.145A Nondisplaced intertrochanteric fracture of left femur, initial encounter for closed fracture (principal); J18.9 Pneumonia, unspecified organism; J69.0 Pneumonitis due to inhalation of food and vomit; D62 Acute posthemorrhagic anemia; N39.0 Urinary tract infection, site not specified; R09.02 Hypoxemia; W19.XXXA Unspecified fall, initial encounter; R29.6 Repeated falls; F03.90 Unspecified dementia, unspecified severity, without behavioral disturbance, psychotic disturbance, mood disturbance, and anxiety; E03.9 Hypothyroidism, unspecified; D72.829 Elevated white blood cell count, unspecified; R13.10 Dysphagia, unspecified; E83.51 Hypocalcemia; I10 Essential (primary) hypertension; E78.5 Hyperlipidemia, unspecified; Z20.822 Contact with and (suspected) exposure to COVID-19; F32.A Depression, unspecified; Z66 Do not resuscitate
CPT/HCPCS: 36415; 70110; 70450; 71045; 71046; 73502; 80048; 80053; 81001; 82607; 82728; 82746; 82948; 83540; 83550; 83735; 84145; 84443; 85025; 85027; 85610; 85730; 86140; 86850; 86900; 86901; 87086; 87088; 87426; 92526; 92610; 92611; 93005; 96365; 96366; 96367; 96375; 97110; 97161; 97165; 97530; 97535; 99285; A9270; C1713; C1769; C9803; G0378; J0131; J0456; J0690; J0696; J1650; J2270; J2405; J2543; J2704; J3010; J7120; U0003; U0005

== ENCOUNTER 2023-02-10 20:48 | Inpatient (IN) | payer MEDICARE, SELFPAY ==
--- NOTE | ~2023-02-10 | CT_ITS ---
EXAMINATION: CTA chest PE protocol DATE: 02/10/2023 22:58 INDICATION: Dyspnea. TECHNIQUE: Computed tomography angiography (CTA) of the chest was performed with 100 mL Omnipaque-350 intravenous contrast timed to evaluate the pulmonary arteries. Coronal maximum intensity projection 3D-reconstructions were created by the technologist. Automated exposure control and iterative reconst ruction technique were employed. The dose-length product was 186.56 mGy-cm. COMPARISON: Chest single view 02/02/2022, 02/10/2023 FINDINGS: There is chronic volume loss of right hemithorax. There are scattered airspace and groundgl ass opacities and nodules in all lobes, right worse than left. There is mucous plugging in right lowe r lobe. There is bronchiectasis in the lungs with an inferior and anterior predominance. No pleural e ffusion. The heart size is normal. No pericardial effusion. There are coronary artery calcifications. There is no pulmonary embolus. Sensitivity is mildly decreased by motion artifact. There is calcifie d atherosclerosis of the aorta and many of the other arteries. There is kyphosis of thoracic spine. IMPRESSION: 1. No pulmonary embolus. Sensitivity is mildly decreased by motion artifact. 2. Diffuse lung disease with chronic volume loss of right hemithorax, likely acute on chronic pneumon ia. 3. Mucous plugging in right lower lobe. Bronchiectasis in the lungs with a lower and anterior lung pr edominance. Reviewed, dictated and finalized at location A. IMPRESSION: 1. No pulmonary embolus. Sensitivity is mildly decreased by motion artifact. 2. Diffuse lung disease with chronic volume loss of right hemithorax, likely ac [place] on chronic pneumonia. 3. Mucous plugging in right lower lobe. Bronchiectasis in the lungs with a lowe r and anterior lung predominance.
--- NOTE | ~2023-02-10 | XR_ITS ---
EXAMINATION: XR chest 1V portable Exam Date/Time: 02/10/2023 20:50 CDT HISTORY: cough, covid exposure Comparison: 02/11/2022. RESULT: Lines, tubes, and devices: None. Lungs and pleura: Chronic volume loss in the right hemithorax. Coarse reticular opacities in the rig ht lung. Subsegmental bibasilar opacities with right costophrenic angle blunting. Cardiomediastinal silhouette: Stable. Other: No acute osseous or upper abdominal finding. IMPRESSION: Subsegmental right basilar atelectasis/consolidation with small right pleural effusion, overlying sadie nges of chronic lung disease and right hemithorax volume loss. Reviewed, dictated and finalized at location K. IMPRESSION: Subsegmental right basilar atelectasis/consolidation with small right pleural e ffusion, overlying changes of chronic lung disease and right hemithorax volume loss.
--- NOTE | 2023-02-10 20:47 | ED.AMS ---
HPI - Altered Mental Status General Chief Complaint: Upper Respiratory Infection Stated Complaint: cough Source: EMS Mode of arrival: EMS Limitations: dementia History of Present Illness HPI narrative: The patient is an 81-year-old female with a history of Alzheimer's dementia, hypertension, hypothyroidism, hyperlipidemia, presenting to the emergency department for evaluation of shortness of breath, noted to be hypoxic down to 80%, per staff at the nursing care facility. Patient was placed on 2 L oxygen via nasal cannula with improvement to 90 percentile. Patient noted to have labored breathing. EMS was contacted, oxygen was increased to 4 L oxygen nasal cannula, with improvement to 95th percentile. Patient noted to have crackles in the right lower lung per EMS. Other vital signs normal aside from mild tachycardia and tachypnea. Patient was afebrile at facility and for EMS. Of note, patient was tested for COVID today at facility and was negative. There is noted to be a COVID outbreak at that facility currently. History limited from patient's secondary to history of known dementia. Related Data Home Medications Medication Instructions Recorded Confirmed Multivitamin Women 50 Plus 1 tab-cap PO DAILY 02/02/22 02/02/22 buspirone 7.5 mg tablet 7.5 mg PO Q12H 02/02/22 02/02/22 docusate sodium 100 mg capsule 100 mg PO BID 02/02/22 02/02/22 donepezil 10 mg tablet 10 mg PO DAILY 02/02/22 02/02/22 ergocalciferol (vitamin D2) 25,000 50,000 unit PO WEEKLY 02/02/22 02/02/22 unit capsule levothyroxine 50 mcg tablet 50 mcg PO DAILY 02/02/22 02/02/22 melatonin 5 mg tablet 5 mg PO HS 02/02/22 02/02/22 memantine 28 mg capsule 28 mg PO DAILY 02/02/22 02/02/22 sprinkle,extended release 24hr mirtazapine 7.5 mg tablet 7.5 mg PO DAILY 02/02/22 02/02/22 omeprazole 20 mg capsule,delayed 20 mg PO DAILY 02/02/22 02/02/22 release potassium chloride 20 mEq 20 meq PO DAILY 02/02/22 02/02/22 tablet,extended release(part/cryst) sennosides 8.6 mg tablet (senna) 17.2 mg PO DAILY 02/02/22 02/02/22 sertraline 50 mg tablet 50 mg PO DAILY 02/02/22 02/02/22 Allergies Allergy/AdvReac Type Severity Reaction Status Date / Time No Known Allergies Allergy Unverified 02/04/22 13:52 Review of Systems Review of Systems: ROS unobtainable: Yes unobtainable due to mental status PMFSH Past Medical History Medical History Dementia Depression Hypertension No longer on medication. Hypothyroidism Mitral valve prolapse Mixed hyperlipidemia No longer on medication. Surgical History Surgical History History of bladder suspension procedure History of cataract extraction History of hip surgery Right hip History of hysterectomy History of open reduction and internal fixation (ORIF) procedure Right hip fracture. Family History Family History Mother Breast cancer Father Diabetes mellitus Heart disease Sibling Amyotrophic lateral sclerosis Social History Social History Social History: Healthcare power of county attorney: Laura Leigh, daughter. Code status: Do not resuscitate. Smoking status: Former smoker Alcohol intake: never Substance use: never Substance use type: does not use Additional living arrangements comments: Memory care unit at [facility]. Spiritual care concerns: No Exam Narrative: GENERAL: Awake, alert, ill-appearing HEAD: Normocephalic, atraumatic. EYES: PERRLA and EOMI. ENT: Nares clear, no rhinorrhea or epistaxis. Mucous membranes moist. NECK: Supple. CHEST: Tachypneic, mildly labored respirations and use of abdominal accessory muscles, crackles right lower lobe, no wheezing appreciated HEART: Tachycardic rate, sinus rhythm ABDOMEN:Non distended, non tender EXTREMITIES: Normal range
[2023-02-10 20:54] VITALS: BP 132/62; PULSE 111; RESP 29; TEMP 36.4; O2SAT 95
[2023-02-10 21:03] VITALS: O2SAT 95
--- NOTE | 2023-02-10 21:13 | ECG_ITS ---
Measurements Intervals Paul Rate: 106 P: 45 MI: 146 QRS: 20 QRSD: 78 T: 6 QT: 337 QTc: 447 Interpretive Statements SINUS TACHYCARDIA POSSIBLE LEFT ATRIAL ENLARGEMENT BORDERLINE T WAVE ABNORMALITY- INFERIOR LEADS BASELINE ARTIFACT- I, V4 BORDERLINE ECG COMPARED TO ECG 02/02/2022 14:27:28 SINUS TACHYCARDIA NOW PRESENT Electronically Signed On 02-11-2023 8:00:44 CDT by Christiano Evangelista D.O.
--- NOTE | 2023-02-10 21:13 | PC.NURSE ---
Patient presents A&Ox2. Patient states she is not having any shortness of breath. Patient is breathing at 33 times a minute and SPO2 is at 95% on 4L/min via nasal cannula.
[2023-02-10] MEDS: SODIUM CHLORIDE 0.9% IV 500 ML 999 ML IV CONT (21:21)
[2023-02-10 21:37] LABS: Hematocrit 42.6 % (37.0-47.0); Hemoglobin 13.7 g/dL (12.0-15.0); Mean Corpuscular HGB Conc 32.2 g/dl (32-36); Mean Corpuscular Hemoglobin 32.4 pg (26-34); Mean Corpuscular Volume 100.7 fl (80-100); Mean Platelet Volume 10.7 fl (7.4-10.4); Platelet Count Result 273 k/mm3 (150-375); Red Blood Count 4.23 M/mm3 (4.2-5.4); Red Cell Distribution Width 13.1 % (11.5-14.5); White Blood Count 26.8 K/mm3 (4.5-10.0)
[2023-02-10 21:45] LABS: Lactic Acid Reflex 1.7 mmol/L (0.7-2.0)
[2023-02-10 21:46] LABS: HCO3 ABG 27.4 mEq/l (22.0-26.0); PCO2 ABG 41.7 mmHg (35.0-45.0); PO2 ABG 82.5 mmHg (80.0-100.0); pH ABG 7.435 (7.350-7.450)
[2023-02-10 21:47] LABS: Alveolar/Arterial O2 Gradient 125.8 mmHg; Base Excess ABG 2.8 mEq/l (+/-2.0); Carboxyhemoglobin 1.3 % THb (0-2.0); Methemoglobin ABG 0.3 %THb (0-1.5); Oxygen Content ABG 18.9 %vol (16.0-22.0); Oxygen Saturation ABG 96.4 % (95.0-100.0); Oxyhemoglobin 94.5 % THb (90.0-100.0); PO2 FiO2 Ratio Arterial Blood 2.29 %; Reduced Hemoglobin 3.9 %THb (0-5.0); Total Hemoglobin 14.2 g/dL (12.0-18.0)
[2023-02-10 21:48] VITALS: BP 143/83; PULSE 103; RESP 29; O2SAT 97
[2023-02-10 21:48] LABS: Device NASAL CANNULA; Fractional Inspired Oxygen 36 %; Modified Allen's Test Pass; Site Drawn RIGHT RADIAL
[2023-02-10 21:54] LABS: Prothrombin Time 13.8 Seconds (11.1-14.7)
[2023-02-10 21:55] LABS: Partial Thromboplastin Time 27.5 SECONDS (22.3-36.8)
[2023-02-10 21:56] LABS: Alanine Aminotransferase 17 U/L (6-35); Albumin Level 3.9 g/dL (3.5-5.1); Alkaline Phosphatase 160 U/L (38-126); Anion Gap 7 mmol/L (8-16); Aspartate Amino Transferase 23 U/L (14-36); Bilirubin,Total 0.8 mg/dL (0.2-1.3); Blood Urea Nitrogen 28 mg/dL (7-17); Calcium 9.4 mg/dL (8.4-10.2); Carbon Dioxide 30 mmol/L (22-30); Chloride 111 mmol/L (98-107); Estimated Glomerular Filt Rate > 60; Glucose 150 mg/dL (65-110); Sodium 148 mmol/L (137-145)
[2023-02-10 22:07] LABS: Troponin I 0.325 ng/mL (0.000-0.034)
[2023-02-10 22:16] LABS: Anisocytosis 1+ (NORMAL); Band Neutrophils Percent 35 % (0-6); Lymphocytes Absolute Manual 1.07 K/mm3 (1.1-4.5); Monocytes Absolute Manual 1.34 K/mm3 (0.1-0.90); Monocytes Percent Manual 5 % (3-9); Neutrophils Absolute Manual 24.38 K/mm3 (1.7-7.2); Neutrophils Percent Manual 56 % (46-73); Platelet Estimate Adequate (Adequate); Total Cells Counted 100
[2023-02-10 22:17] LABS: Microcytosis 1+ (NORMAL); Poikilocytosis 1+ (NORMAL)
[2023-02-10 22:18] LABS: Burr Cells 1+ (NORMAL); Schistocytes None Seen (NORMAL)
[2023-02-10 22:19] LABS: Hypochromasia 1+ (NORMAL)
[2023-02-10 22:25] LABS: NT Pro B Type Natriuretic Pept 4630 pg/mL (19.9-100)
[2023-02-10 22:26] LABS: Influenza A QL RT-PCR Negative (Negative); Influenza B QL RT-PCR Negative (Negative); RSV RNA, RT-PCR Negative (Negative); SARS-CoV-2 RNA PCR Negative (Negative)
[2023-02-10 22:38] LABS: CRP 30.6 mg/dL (<1.0)
--- NOTE | 2023-02-10 22:42 | PC.NURSE ---
Family at bedside stated patient is 5'8 . Bed scale weighed patient at 64.9kg.
[2023-02-10] MEDS: FUROSEMIDE INJ 40 MG/4 ML VIAL IV PUSH (23:16)
[2023-02-10] MEDS: CEFEPIME 2 GM/NS 50 ML 2 GM/50 ML BAG IVPB (23:31)
[2023-02-10 23:44] VITALS: BP 135/83; PULSE 106; RESP 29; O2SAT 93
[2023-02-11] VITALS (24 sets, daily range): BP systolic 96–135; BP diastolic 54–74; PULSE 79–103; RESP 18–94; TEMP 36.2–36.8; O2SAT 91–100; BMI 19.0
--- NOTE | 2023-02-11 | ECHO_ITS ---
Patient Info Name: Awilda Salazar Age: 82 years : 1940 Gender: Female Ht: 68 in Wt: 125 lbs BSA: 1.64 m2 HR: 86 bpm BP: 135 / 71 mmHg Heart Rhythm: Sinus Rhythm Technical Quality: Fair Exam Date: 02/11/2023 1:51 PM Exam Location: [facility] Patient Status: Inpatient Admit Date: 02/10/2023 Staff Ordering Physician: Kirill Zeng MD Junior Electrical Engineer: Elvira Weeks RDCS Attending Provider: Moses Corea MD Exam Type: CA echo doppler color flow Study Info Indications - POSITIVE TROPONIN Complete two-dimensional, color flow and Doppler transthoracic echocardiogram is performed. Summary 1. Complete two-dimensional, color flow and Doppler transthoracic echocardiogram is performed. 2. Left ventricular chamber dimension is normal. 3. Left ventricular systolic function is normal, estimated at 50-55%. 4. The left ventricular diastolic function is grade I diastolic dysfunction. 5. There is moderate aortic valve calcification. 6. There is mild aortic valve stenosis. 7. There is mild aortic valve regurgitation. 8. The mitral valve annulus is mildly calcified. 9. The mitral valve has thickened leaflets. 10. There is trace mitral valve regurgitation. 11. There is mild tricuspid valve regurgitation. 12. The aortic root size at the sinus of Valsalva is mildly dilated. Left Ventricle Left ventricular chamber dimension is normal. Left ventricular systolic function is normal, estimated at 50-55%. There is no increased left ventricular wall thickness. Left ventricular septal wall motion is abnormal with septal motion related to IVCD or bundle branch block. The left ventricular diastolic function is grade I diastolic dysfunction. Right Ventricle Right ventricular chamber dimension is normal. Left Atria Left atrial chamber dimension is normal. Right Atria Right atrial chamber dimension is normal. Atrial Septum Intact interatrial septum visualized by color flow imaging. Aortic Valve The aortic valve is trileaflet. There is mild aortic valve stenosis. There is mild aortic valve regurgitation. There is moderate aortic valve calcification. Pulmonic Valve The pulmonic valve is not well visualized. Mitral Valve The mitral valve has thickened leaflets. There is trace mitral valve regurgitation. The mitral valve annulus is mildly calcified. Tricuspid Valve There is mild tricuspid valve regurgitation. Pericardium/Pleural There is no pericardial effusion. Inferior Vena Cava Normal inferior vena cava with >50% collapse upon inspiration consistent with normal right atrial pressure, 3 mmHg. Aorta The aortic root size at the sinus of Valsalva is mildly dilated. Left Ventricular Outflow Tract Name Value Normal LVOT 2D LVOT Diameter 2.1 cm LVOT Doppler LVOT Peak Gradient 3 mmHg LVOT Mean Gradient 1 mmHg LVOT VTI 16 cm LVOT VTI/AV VTI Ratio 0.8 LVOT Stroke Volume 54 ml LVOT CO 4.7 l/min LVOT CI 2.9 l/min/m2 Pulmonic Valve
--- NOTE | 2023-02-11 05:10 | ADMGEN ---
This patient, Awilda Salazar, was admitted to IMU Room 202-01. Patient/family oriented to hospital policies and general routines including ID bracelet, bed and alarms, visiting hours, pain management, procedures, bathroom and other care routines, personal items, smoking policy, room service/diet, and visiting hours. Information on how to activate the Rapid Response Team has been discussed. Patient/Family are encouraged to report perceived risks to care and to ask questions if they do not understand what they are told or what they should do.
[2023-02-11 05:29] LABS: Estimated CRCL calculation 37 ml/min; Estimated Glomerular Filt Rate 60
[2023-02-11 05:40] LABS: Troponin I 0.267 ng/mL (0.000-0.034)
--- NOTE | 2023-02-11 08:15 | PM.IMHP ---
H&P: HPI History of Present Illness Date/Time: 02/11/23 08:15 Chief Complaint: Hypoxia Narrative: 82yo female with dementia, HTN and hypothyroidism who presents to the emergency department by EMS for evaluation of shortness of breath and hypoxia. Hx is limited due to her dementia. Per ER notes: She was noted to be hypoxic down to 80% per staff at the nursing care facility.? Patient was placed on 2 L oxygen via nasal cannula with improvement to 90th percentile.? Patient noted to have labored breathing.? EMS was contacted, oxygen was increased to 4 L oxygen nasal cannula, with improvement to 95th percentile.? Patient noted to have crackles in the right lower lung per EMS.? Other vital signs normal aside from mild tachycardia and tachypnea.? Patient was afebrile at facility and for EMS.? Of note, patient was tested for COVID today at facility and was negative.? There is noted to be a COVID outbreak at that facility currently.? She is alert but confused. She denies chest pain but feels SOB. History limited from patient's secondary to history of known dementia. She was afebrile but tachypneic and hypoxic. WBC 27K with bandemia and chest x-ray showed subsegmental right basilar consolidation. CTA of the chest showed no PE but did show diffuse lung disease with chronic volume loss of right hemithorax likely acute on chronic pneumonia and mucus plugging in the right lower lobe as well as bronchiectasis. COVID, influenza and RSV were negative. She was started on IV antibiotics. She was admitted for further care. Review of Systems Review of Systems: ROS unobtainable: Yes unobtainable due to medical condition PMFSH Past Medical History Medical History Dementia Depression Hypertension No longer on medication. Hypothyroidism Mitral valve prolapse Mixed hyperlipidemia No longer on medication. Surgical History Surgical History History of bladder suspension procedure History of cataract extraction History of hip surgery Right hip. Left hip fx January 2022 s/p ORIF History of hysterectomy History of open reduction and internal fixation (ORIF) procedure Right hip fracture. Family History Family History Mother Breast cancer Father Diabetes mellitus Heart disease Sibling Amyotrophic lateral sclerosis Social History Social History Social History: Healthcare power of business attorney: Laura Leigh, daughter. Code status: Do not resuscitate. Smoking status: Former smoker Alcohol intake: never Substance use: never Substance use type: does not use Additional living arrangements comments: Memory care unit at [place]. Spiritual care concerns: No Meds Home Medications and Allergies Home Medications Medication Instructions Recorded Confirmed Type Multivitamin Women 50 Plus 1 tab-cap PO DAILY 02/02/22 02/11/23 History buspirone 7.5 mg tablet 7.5 mg PO Q12H 02/02/22 02/11/23 History donepezil 10 mg tablet 10 mg PO DAILY 02/02/22 02/11/23 History ergocalciferol (vitamin D2) 25,000 50,000 unit PO WEEKLY 02/02/22 02/11/23 History unit capsule levothyroxine 50 mcg tablet 50 mcg PO DAILY 02/02/22 02/11/23 History melatonin 5 mg tablet 5 mg PO HS 02/02/22 02/11/23 History memantine 28 mg capsule 28 mg PO DAILY 02/02/22 02/11/23 History sprinkle,extended release 24hr mirtazapine 7.5 mg tablet 7.5 mg PO DAILY 02/02/22 02/11/23 History omeprazole 20 mg capsule,delayed 20 mg PO DAILY 02/02/22 02/11/23 History release potassium chloride 20 mEq 20 meq PO DAILY 02/02/22 02/11/23 History tablet,extended release(part/cryst) sennosides 8.6 mg tablet (senna) 17.2 mg PO DAILY 02/02/22 02/11/23 History sertraline 50 mg tablet 50 mg PO DAILY 02/02/22 02/11/23 History acetaminophen 325 mg capsule 6
[2023-02-11] MEDS: SILVERGEL (ELTA) 45 ML 1 APPLIC TOPICAL (10:02)
[2023-02-11] MEDS: CEFEPIME 2 GM/NS 50 ML 2 GM/50 ML BAG IVPB ×2 (12:06→23:30)
[2023-02-11] MEDS: IPRATROPIUM BR 0.02% INH SOLN 0.5 MG/2.5 ML VIAL INHALATION ×2 (13:17→20:47)
[2023-02-11] MEDS: LEVALBUTEROL NEB 1.25 MG/3 ML INHALATION ×2 (13:17→20:47)
[2023-02-11 13:37] LABS: Hematocrit 43.6 % (37.0-47.0); Hemoglobin 13.4 g/dL (12.0-15.0); Mean Corpuscular HGB Conc 30.7 g/dl (32-36); Mean Corpuscular Hemoglobin 32.4 pg (26-34); Mean Corpuscular Volume 105.6 fl (80-100); Mean Platelet Volume 11.4 fl (7.4-10.4); Platelet Count Result 315 k/mm3 (150-375); Red Blood Count 4.13 M/mm3 (4.2-5.4); Red Cell Distribution Width 13.4 % (11.5-14.5); White Blood Count 31.5 K/mm3 (4.5-10.0)
[2023-02-11 13:43] LABS: Anion Gap 7 mmol/L (8-16); Blood Urea Nitrogen 27 mg/dL (7-17); Calcium 9.1 mg/dL (8.4-10.2); Carbon Dioxide 30 mmol/L (22-30); Chloride 110 mmol/L (98-107); Estimated CRCL calculation 37 ml/min; Estimated Glomerular Filt Rate 60; Glucose 152 mg/dL (65-110); Potassium 3.7 mmol/L (3.4-5.0); Sodium 147 mmol/L (137-145)
[2023-02-11 14:27] LABS: Band Neutrophils Percent 39 % (0-6); Lymphocytes Absolute Manual 1.57 K/mm3 (1.1-4.5); Lymphocytes Percent Manual 5 % (18-44); Monocytes Absolute Manual 2.52 K/mm3 (0.1-0.90); Monocytes Percent Manual 8 % (3-9); Neutrophils Percent Manual 48 % (46-73); Platelet Estimate Adequate (Adequate); Total Cells Counted 100
[2023-02-11 14:28] LABS: Burr Cells 1+ (NORMAL); Schistocytes None Seen (NORMAL)
--- NOTE | 2023-02-11 15:09 | PCSTNOTE ---
Dr. Zeng and SAEID [place], both notified therapist that patient is to be going to Hospice care and no need to complete Bedside Swallow Evaluation at this time.
--- NOTE | 2023-02-11 15:10 | PCSTNOTE ---
Therapist mistakenly called the Bedside Swallow Order as complete but should have been listed as Cancelled.
[2023-02-11] MEDS: metroNIDAZOLE 500 MG/ISO 100ML 500 MG/100 ML BAG 100 MG IVPB ×2 (16:40→21:13)
[2023-02-11] MEDS: SODIUM CHLORIDE 0.9% IV 1,000 ML 70 ML IV CONT (18:21)
[2023-02-12] VITALS (16 sets, daily range): BP systolic 132–150; BP diastolic 71–86; PULSE 86–100; RESP 18–32; TEMP 36.4–37.2; O2SAT 91–96
[2023-02-12] MEDS: IPRATROPIUM BR 0.02% INH SOLN 0.5 MG/2.5 ML VIAL INHALATION ×3 (01:44→14:15)
[2023-02-12] MEDS: LEVALBUTEROL NEB 1.25 MG/3 ML INHALATION ×3 (01:44→14:15)
[2023-02-12 04:48] LABS: Hematocrit 38.7 % (37.0-47.0); Hemoglobin 12.3 g/dL (12.0-15.0); Mean Corpuscular HGB Conc 31.8 g/dl (32-36); Mean Corpuscular Hemoglobin 32.1 pg (26-34); Mean Platelet Volume 10.8 fl (7.4-10.4); Platelet Count Result 226 k/mm3 (150-375); Red Blood Count 3.83 M/mm3 (4.2-5.4); Red Cell Distribution Width 13.1 % (11.5-14.5)
[2023-02-12 05:03] LABS: Alanine Aminotransferase 19 U/L (6-35); Albumin Level 3.2 g/dL (3.5-5.1); Alkaline Phosphatase 128 U/L (38-126); Anion Gap 9 mmol/L (8-16); Aspartate Amino Transferase 28 U/L (14-36); Bilirubin,Total 0.6 mg/dL (0.2-1.3); Blood Urea Nitrogen 32 mg/dL (7-17); Calcium 8.6 mg/dL (8.4-10.2); Carbon Dioxide 27 mmol/L (22-30); Chloride 111 mmol/L (98-107); Estimated CRCL calculation 47 ml/min; Estimated Glomerular Filt Rate > 60; Glucose 107 mg/dL (65-110); Magnesium 2.1 mg/dL (1.6-2.3); Phosphorus 3.5 mg/dL (2.5-4.5); Potassium 3.4 mmol/L (3.4-5.0); Sodium 147 mmol/L (137-145)
[2023-02-12 05:11] LABS: Band Neutrophils Percent 4 % (0-6); Monocytes Absolute Manual 1.68 K/mm3 (0.1-0.90); Monocytes Percent Manual 7 % (3-9); Neutrophils Absolute Manual 21.12 K/mm3 (1.7-7.2); Neutrophils Percent Manual 84 % (46-73); Platelet Estimate Adequate (Adequate); Schistocytes None Seen (NORMAL); Total Cells Counted 100
[2023-02-12 05:12] LABS: Acanthocytes 1+ (NORMAL); Anisocytosis 1+ (NORMAL)
[2023-02-12] MEDS: metroNIDAZOLE 500 MG/ISO 100ML 500 MG/100 ML BAG 100 MG IVPB (05:29)
--- NOTE | 2023-02-12 09:25 | PM.IMPN ---
Progress Note: A&P Assessment and Plan (1) Acute respiratory failure: Code(s): J96.00 - Acute respiratory failure, unspecified whether with hypoxia or hypercapnia Status: Acute (2) Sepsis: Code(s): A41.9 - Sepsis, unspecified organism Status: Acute (3) Pneumonia: Code(s): J18.9 - Pneumonia, unspecified organism Status: Acute (4) Elevated troponin: Code(s): R77.8 - Other specified abnormalities of plasma proteins Status: Acute (5) Dementia: Qualifiers: Dementia type: unspecified type Code(s): F03.90 - Unspecified dementia, unspecified severity, without behavioral disturbance, psychotic disturbance, mood disturbance, and anxiety Status: Acute (6) Dysphagia: Code(s): R13.10 - Dysphagia, unspecified Status: Acute Plan Patient presents to emergency room with cough and hypoxia and found to have acute respiratory failure and sepsis from PNA. Viral panel was negative. Imaging is concerning for pneumonia. Speech therapy evaluation 1 year ago showing that the patient does have dysphagia requiring minced and moist food with moderately thick liquids. Patient currently NPO. Suspect patient has aspiration pneumonia. This could be part of the etiology of the bronchiectasis. She was started on Cefepime and Vancomycin. Will adjust abx and add Flagyl given the poor dentition and aspiration risk. Will order CPT. Wean O2 as tolerated. Add bronchodilators. Speech therapy evaluation. Troponin are elevated felt related to the sepsis picture. EKG reviewed personally showing borderline T wave changes in the inferior leads. Will add rectal ASA. Check Echo. Hold home meds until it can be determined that she can swallow safely.Discussed with Medical POA. Patient is taking a regular diet at the residential. She is agreeable for NG tube if needed. 02/12: 1 of 2 blood cultures returned positive with Gram-positive cocci in clusters from anaerobic bottle only. This could be contaminant or possibly the etiology of her sepsis. MRSA nasal swab is pending. White count climbed to 31 K last evening but has trended back downward today. Patient remains NPO given the concern that her pneumonia is related to aspiration. Family is meeting with hospice today. If family decides on hospice care than will discuss with them about resuming diet for comfort. Will continue IV antibiotics for now. If no decision is made about hospice today, will discuss with family about placing NG tube for nutrition. Subjective Date/time seen: 02/12/23 09:25 Interval history: 82yo female with dementia, HTN and hypothyroidism who presents to the emergency department by EMS for evaluation of shortness of breath and hypoxia.? Patient slept some last night but does feel tired. She feels short of breath. No chest pain. Patient is alert but confused so history is unreliable. Family called in to the nurse's station last night stating that they want to proceed with hospice care. Care coordination/hospice consult were placed. Review of Systems Review of Systems: ROS unobtainable: Yes unobtainable due to medical condition Exam Narrative: AF 97.8 141/83 92 20 94% HFNC Gen - NARD Chest - Right base inspiratory crackles, nml RR CV - RRR S1/S2. Tele showing PVCs Abd -soft. Nontender. Nondistended. Positive bowel sounds Ext -no pedal edema. Neuro -alert but confused Psych - normal mood and affect. Patient is pleasant and cooperative. Skin - warm and dry. Objective Data Vital Signs Vital Signs: Vital Signs - 24 hr 02/11/23 10:00 02/11/23 12:00 02/11/23 12:00 Temperature 98.3 F Pulse Rate 85 86 87 Respiratory Rate 22 H Blood Pressure 135/71 Pulse Oximetry 96 Oxygen Delivery Oxygen Flow Rate Fraction of Inspired Oxygen 02/11/23 12:00 02/11/23 13:02 02/11/23 13:22 Temperature Pulse Rate 86 85 Respiratory Rate 20 Blood Pressure Pulse Oximetry
[2023-02-12] MEDS: SILVERGEL (ELTA) 45 ML 1 APPLIC TOPICAL (10:59)
[2023-02-12] MEDS: ASPIRIN 300 MG SUPPOSITORY RECTAL (10:59)
--- NOTE | 2023-02-12 13:20 | PM.DS ---
DS: Admitting Diagnosis Discharge Date 02/12/23 Admitting Diagnosis Hypoxia DS: Discharge Diagnosis Discharge Diagnosis (1) Acute respiratory failure: Code(s): J96.00 - Acute respiratory failure, unspecified whether with hypoxia or hypercapnia Status: Acute (2) Sepsis: Code(s): A41.9 - Sepsis, unspecified organism Status: Acute (3) Pneumonia: Code(s): J18.9 - Pneumonia, unspecified organism Status: Acute (4) Elevated troponin: Code(s): R77.8 - Other specified abnormalities of plasma proteins Status: Acute (5) Dementia: Qualifiers: Dementia type: unspecified type Code(s): F03.90 - Unspecified dementia, unspecified severity, without behavioral disturbance, psychotic disturbance, mood disturbance, and anxiety Status: Acute (6) Dysphagia: Code(s): R13.10 - Dysphagia, unspecified Status: Acute DS: Summary Hospital Course Reason for hospitalization: 82yo female with dementia, HTN and hypothyroidism who presents to the emergency department by EMS for evaluation of shortness of breath and hypoxia.?Please see H&P for details Hospital Course: Patient presents to emergency room with cough and hypoxia and found to have acute respiratory failure and sepsis from PNA. Viral panel was negative. Imaging is concerning for pneumonia. Speech therapy evaluation 1 year ago showing that the patient does have dysphagia requiring minced and moist food with moderately thick liquids. Patient was made NPO due to the suspicion for aspiration pneumonia. She was started on Cefepime, Vancomycin and Flagyl. CPT ordered. Speech therapy evaluation ordered. Troponin were elevated felt related to the sepsis picture. EKG reviewed personally showing borderline T wave changes in the inferior leads. Rectal ASA added. Echo showingEF 50-55% with Grade I diastolic dysfunction. 1 of 2 blood cultures returned positive with Gram-positive cocci in clusters from anaerobic bottle only. This could be contaminant or possibly the etiology of her sepsis. MRSA nasal swab pending. White count climbed to 31 K but has trended back downward. Discussed with Medical POA about the patient's current condition and options. We also discussed hospice. Family met with hospice today and agreed to proceed with hospice care. They did not want to continue with abx. She was discharged on 02/12/23 on hospice care. Status at Discharge Cognitive/behavioral status at discharge: stable Time Spent with Patient Time attestation: Total time spent providing and/or coordinating discharge services: 36 minutes Time spent: Greater than 30 minutes Exam Narrative: AF 97.8 141/83 92 20 94% HFNC Gen - NARD Chest - Right base inspiratory crackles, nml RR CV - RRR S1/S2. Tele showing PVCs Abd -soft. Nontender. Nondistended. Positive bowel sounds Ext -no pedal edema. Neuro -alert but confused Psych - normal mood and affect. Patient is pleasant and cooperative. Skin - warm and dry. DS: Data Data Completed and Pending Labs on day of discharge: Labs from last 24 hours 02/12/23 02/11/23 04:31 05:00 WBC 24.0 H 31.5 H RBC 3.83 L 4.13 L Hgb 12.3 13.4 Hct 38.7 43.6 MCV 101.0 H 105.6 H MCH 32.1 32.4 MCHC 31.8 L 30.7 L RDW 13.1 13.4 Plt Count 226 315 MPV 10.8 H 11.4 H Immature Gran % (Auto) Not Reportable Not Reportable Neut % (Auto) Not Reportable Not Reportable Lymph % (Auto) Not Reportable Not Reportable [place] % (Auto) Not Reportable Not Reportable Eos % (Auto) Not Reportable Not Reportable Baso % (Auto) Not Reportable Not Reportable Lymph # (Auto) Not Reportable Not Reportable [place] # (Auto) Not Reportable Not Reportable Eos # (Auto) Not Reportable Not Reportable Baso # (Auto) Not Reportable Not Reportable Abs Immat Gran (auto) Not Reportable Not Reportable Absolute Neuts (auto) Not Reportable Not Reportable Absolute Nucleated RBC No
[2023-02-15 04:31] LABS: Prolactin 3.4 ng/mL (***)
== END 2023-02-12 19:45 | disposition hospice, inpatient (51) | DRG 871 ==
LOC: ANHED 23:47 → ANHIMU 02-11 02:41
PROVIDERS: Admitting Provider Internal Medicine; Emergency Provider Emergency Medicine; PCP Family Medicine; Visit Provider Internal Medicine
DX: A41.9 Sepsis, unspecified organism (principal); J18.9 Pneumonia, unspecified organism; J69.0 Pneumonitis due to inhalation of food and vomit; J96.00 Acute respiratory failure, unspecified whether with hypoxia or hypercapnia; J47.9 Bronchiectasis, uncomplicated; I34.1 Nonrheumatic mitral (valve) prolapse; I10 Essential (primary) hypertension; E03.9 Hypothyroidism, unspecified; E78.2 Mixed hyperlipidemia; G30.9 Alzheimer's disease, unspecified; F02.80 Dementia in other diseases classified elsewhere, unspecified severity, without behavioral disturbance, psychotic disturbance, mood disturbance, and anxiety; F32.A Depression, unspecified; Z20.822 Contact with and (suspected) exposure to COVID-19; Z51.5 Encounter for palliative care
CPT/HCPCS: 36415; 36600; 71045; 71275; 80048; 80053; 82375; 82565; 82805; 83050; 83605; 83735; 83880; 84100; 84146; 84484; 85025; 85610; 85730; 86140; 87040; 87081; 87147; 87181; 87186; 87637; 93005; 93306; 94640; 94667; 96365; 96366; 96367; 96375; 99285; A9270; G0378; J0131; J0692; J1100; J1940; J3370; J7030; J7040; Q9967